=== PATIENT | female | born 1970 | race African-American/Black ===

== ENCOUNTER 2016-12-08 08:49 | Emergency (ER) | payer OTHER ==
[2016-12-08 08:57] VITALS: BP 147/100; PULSE 66; TEMP 97.4; BMI 46.9
--- NOTE | 2016-12-08 09:23 | PDOC ---
History of Present Illness - General Chief Complaint: Pain Stated Complaint: RT HEEL/FT PAIN Time Seen by Provider: 12/08/16 09:00 History Source: Patient Exam Limitations: No Limitations - History of Present Illness Initial Comments: 12/08/16 09:20 states was playing with her grandson, swung her leg back and kicked her heel into a hard aspect of the chair. Complaints of worsening pain to her right heel over the past 4 days. States used ice and some Tylenol with minimal result and understands nose has a heels and worries he might of been a fracture 12/08/16 09:34 Severity: reports: mild, moderate Pain Location: reports: lower extremity Past History - Travel Traveled outside of the country in the last 30 days: No Close contact w/someone who was outside of country & ill: No - Past Medical History Allergies/Adverse Reactions: Allergies Allergy/AdvReac Type Severity Reaction Status Date / Time No Known Drug Allergies Allergy Verified 12/08/16 08:54 Home Medications: Ambulatory Orders Oxycodone HCl/Acetaminophen [Percocet 5-325 mg Tablet -] 1 - 2 tab PO Q4H PRN # 7 tablet MDD 4 12/08/16 Anemia: No Asthma: Yes Cancer: No Cardiac Disorders: No CVA: No COPD: No CHF: No Dementia: No Diabetes: No GI Disorders: No Disorders: No HTN: Yes Hypercholesterolemia: No Liver Disease: No Seizures: No Thyroid Disease: No - Surgical History Abdominal Surgery: No Appendectomy: No Cardiac Surgery: No Cholecystectomy: No Lung Surgery: No Neurologic Surgery: No Orthopedic Surgery: No - Immunization History Immunization Up to Date: Yes - Psycho/Social/Smoking Cessation Hx Anxiety: No Suicidal Ideation: No Smoking Status: No Smoking History: Never smoked Have you smoked in the past 12 months: No Number of Cigarettes Smoked Daily: 0 Information on smoking cessation initiated: No Hx Alcohol Use: No Drug/Substance Use Hx: No Substance Use Type: None Trauma Specific PMHX - Complaint Specific PMHX Back Injury: No Neck Injury: No Review of Systems - Review of Systems Able to Perform ROS?: Yes (right heel) Is the patient limited Georgian proficient: Yes Constitutional: Yes: Symptoms Reported, See HPI HEENTM: No: Symptoms Reported Respiratory: No: Symptoms reported Musculoskeletal: Yes: Symptoms Reported, See HPI, Joint Pain, Joint Swelling Integumentary: Yes: Symptoms Reported All Other Systems: Reviewed and Negative *Physical Exam - Vital Signs Last Vital Signs Temp Pulse Resp BP Pulse Ox 97.4 F L 66 18 147/100 100 12/08/16 08:55 12/08/16 08:55 12/08/16 08:55 12/08/16 08:55 12/08/16 08:55 - Physical Exam General Appearance: Yes: Nourished, Appropriately Dressed, Apparent Distress, Mild Distress HEENT: positive: DANNY Neck: positive: Supple. negative: Tender Respiratory/Chest: positive: Lungs Clear, Normal Breath Sounds Extremity: positive: Normal Capillary Refill, Normal Range of Motion, Tender ( swelling, tenderness, and mild ecchymosis noted to the heel of her right foot. No crepitus or step-offs, but is tender to touch. Achilles tendon is intact, able to flex and extend foot.), Swelling Integumentary: positive: Normal Color, Dry, Warm, Swelling (full ROM to toes ), Bruising Neurologic: positive: bank guard II-XII NML intact, Fully Oriented, Alert, Normal Mood/ Affect, Normal Response ED Treatment Course - RADIOLOGY Radiology Studies Ordered: Category Date Time Status FOOT-RIGHT [RAD] Stat Radiology 12/08/16 09:08 Ordered Progress Note - Progress Note Progress Note: Heel contusion, treating with Bert wrap, cane, and given #7 Percocet tablets. Has appointment with orthopedist tomorrow *DC/Admit/Observation/Transfer Diagnosis at time of Disposition: Contusion of right heel Qualifiers: Encounter type: initial encounter Qualified Code(s): S90.31XA - Contusion of right foot, initial encounter - Discharge Dispostion Disposition: HOME Condition at time of disposition: Stable Admit: No - Referrals Referrals: Daphney Long MD [Primary Care Provider] - Dejuan Monk MD [Staff Physician] - - Patient Instructions Printed Discharge Instructions: DI for Contusion Additional Instructions: Rest, ice to area on and off for 15 minutes 4-6 times a day Avoid heavy lifting or exercise until pain and swelling is resolved or until further directed Keep area highly elevated to reduce swelling Use splints/Bert wrap as directed Followup with orthopedist in one to 2 days if not improving, if significantly improved may wait one week for followup with orthopedist May use ibuprofen 2-200 mg tablets every 6 hours as needed for pain - Post Discharge Activity Work/School Note: Back to Work
== END 2016-12-08 09:57 | disposition home or self-care (01) ==
LOC: JERFT 08:49
DX: S90.31XA Contusion of right foot, initial encounter (principal); W22.8XXA Striking against or struck by other objects, initial encounter; Y93.89 Activity, other specified; Y92.098 Other place in other non-institutional residence as the place of occurrence of the external cause; Y99.8 Other external cause status; I10 Essential (primary) hypertension; J45.909 Unspecified asthma, uncomplicated
CPT/HCPCS: 73630-TC-RT; 99281-25

== ENCOUNTER 2016-12-23 19:42 | Emergency (ER) | payer OTHER ==
[2016-12-23 19:55] VITALS: BP 155/83; PULSE 80; TEMP 97.9; BMI 45.8
--- NOTE | 2016-12-23 21:05 | PDOC ---
History of Present Illness - General History Source: Patient Exam Limitations: No Limitations - History of Present Illness Initial Comments: 12/23/16 21:11 The patient is a 46 year old female with significant past medical history of hypertension and acid reflux who presents to the ED with 2 days of nonradiating left sided chest pressure. Patient reports she was not doing anything at the time when she developed the left-sided chest pressure. She reports one episode of nausea with lightheadedness this morning. Patient denies diaphoresis, SOB, palpitations, jaw pain, shoulder pain, arm pain, and vomiting. She states never experiencing this in the past before. The patient denies fever, chills, cough, abdominal pain and diarrhea. Allergies: NKDA Social History: No alcohol, tobacco, or drug use reported. Past Surgical History: None reported PCP: Dr. Daphney Long <Ashly Washington - Last Filed: 12/24/16 01:41> - General History Source: Patient <Dinesh Alford - Last Filed: 12/24/16 01:59> - General Chief Complaint: Chest Pain Stated Complaint: CHEST PAIN Time Seen by Provider: 12/23/16 21:05 Past History <Ashly Washington - Last Filed: 12/24/16 01:41> - Past Medical History Anemia: No Asthma: Yes Cancer: No Cardiac Disorders: No CVA: No COPD: No CHF: No Dementia: No Diabetes: No GI Disorders: No Disorders: No HTN: Yes Hypercholesterolemia: No Liver Disease: No Seizures: No Thyroid Disease: No - Surgical History Abdominal Surgery: No Appendectomy: No Cardiac Surgery: No Cholecystectomy: No Lung Surgery: No Neurologic Surgery: No Orthopedic Surgery: No - Immunization History Immunization Up to Date: Yes - Psycho/Social/Smoking Cessation Hx Anxiety: No Suicidal Ideation: No Smoking Status: No Smoking History: Never smoked Have you smoked in the past 12 months: No Number of Cigarettes Smoked Daily: 0 Hx Alcohol Use: No Drug/Substance Use Hx: No Substance Use Type: None <Dinesh Alford - Last Filed: 12/24/16 01:59> - Past Medical History Allergies/Adverse Reactions: Allergies Allergy/AdvReac Type Severity Reaction Status Date / Time No Known Drug Allergies Allergy Verified 12/23/16 19:52 Home Medications: Ambulatory Orders Lisinopril 5 mg PO DAILY 12/23/16 Review of Systems - Review of Systems Able to Perform ROS?: Yes Comments:: 12/23/16 21:11 CONSTITUTIONAL: Absent: fever, no chills, no fatigue EYES: Absent: visual changes ENT: Absent: ear pain, no sore throat CARDIOVASCULAR: +left-sided chest pressure, lightheadedness Absent: no palpitations RESPIRATORY: Absent: cough, no SOB GI: +nausea Absent: abdominal pain, no vomiting, no constipation, no diarrhea GENITOURINARY: Absent: dysuria, no frequency, no hematuria MUSKULOSKELETAL: Absent: back pain, no arthralgia, no myalgia SKIN: Absent: rash NEURO: Absent: headache <Ashly Washington - Last Filed: 12/24/16 01:41> *Physical Exam - Vital Signs Last Vital Signs Temp Pulse Resp BP Pulse Ox 97.9 F 80 18 155/83 98 12/23/16 19:53 12/23/16 19:53 12/23/16 19:53 12/23/16 19:53 12/23/16 19:53 - Physical Exam Comments: 12/23/16 21:11 GENERAL: Morbidly obese. Well-appearing, well-nourished. No apparent distress. HEENT: Normocephalic, atraumatic. PERRL, EOM intact. CARDIOVASCULAR: Normal S1, S2. Regular rate and rhythm. PULMONARY: Clear to auscultation bilaterally. ABDOMEN: Soft, non-distended, non-tender. EXTREMITIES: Normal ROM in all four extremities. No gross deformities. SKIN: Warm, dry. No rash NEUROLOGICAL: No focal neurological deficits. <Ashly Washington - Last Filed: 12/24/16 01:41> - Vital Signs Last Vital Signs Temp Pulse Resp BP Pulse Ox 97.9 F 80 18 155/83 98 12/23/16 19:53 12/23/16 19:53 12/23/16 19:53 12/23/16 19:53 12/23/16 19:53 <Dinesh Alford - Last Filed: 12/24/16 01:59> Heart Score/ECG Review - ECG Impressions Comment:: 12/23/16 21:11 NSR @69bpm Nonspecific T wave abnormality Abnormal ECG 12/24/16 24:17 NSr @62bpm Nonspecific T wave abnormality Abnormal ECG <Ashly Washington - Last Filed: 12/24/16 01:41> ED Treatment Course - LABORATORY CBC & Chemistry Diagram: 12/23/16 21:30 12/23/16 21:30 <Ashly Washington - Last Filed: 12/24/16 01:41> - LABORATORY CBC & Chemistry Diagram: 12/23/16 21:30 12/23/16 21:30 <Dinesh Alford - Last Filed: 12/24/16 01:59> Medical Decision Making - Medical Decision Making 12/24/16 01:59 Dr. Alford: The scribe's documentation has been prepared under my direction and personally reviewed by me in its entirery. I confirm that the note above accurately reflects all work, treatment, procedures, and medical decision making performed by me. <Dinesh Alford - Last Filed: 12/24/16 01:59> *DC/Admit/Observation/Transfer - Attestations Scribe Attestion: 12/23/16 21:12 Documentation prepared by Ashly Washington, acting as back office medical assistant for Dinesh Alford MD <Ashly Washington - Last Filed: 12/24/16 01:41> - Discharge Dispostion Admit: No <Dinesh Alford - Last Filed: 12/24/16 01:59> Diagnosis at time of Disposition: Chest pain Qualifiers: Chest pain type: unspecified Qualified Code(s): R07.9 - Chest pain, unspecified - Discharge Dispostion Disposition: HOME Condition at time of disposition: Stable - Referrals Referrals: Daphney Long MD [Primary Care Provider] - Magan Hayes MD [Staff Physician] - - Patient Instructions Printed Discharge Instructions: DI for Chest Pain
[2016-12-23] MEDS ORDERED: ASPIRIN 81 MG CHEWABLE TABLETS PO ONE (21:08)
[2016-12-23] MEDS ORDERED: ASPIRIN 325 MG TABLET ONE (21:35)
[2016-12-23 21:40] LABS: MCH 29.7 pg (25.7-33.7); MCHC 33.7 g/dl (32.0-36.0); MEAN CELL VOLUME 88.1 fl (80-96); MEAN PLT VOLUME 9.8 fl (7.5-11.1); PLATELET COUNT 224 K/MM3 (134-434); RDW 15.4 % (11.6-15.6); WHITE BLOOD COUNT 5.1 K/mm3 (4.0-10.0)
[2016-12-23 21:58] LABS: INR 1.08 (0.82-1.09); PROTHROMBIN TIME (PATIENT) 11.9 SEC (9.98-11.88)
[2016-12-23 22:34] LABS: PLATELET ESTIMATE ADEQUATE (NORMAL)
[2016-12-23 22:45] LABS: ALBUMIN 3.4 g/dl (3.4-5.0); ANION GAP 7 (8-16); BILIRUBIN,TOTAL 0.2 mg/dL (0.2-1.0); CALCIUM 8.9 mg/dL (8.5-10.1); CO2 24 mmol/L (21-32); CREATININE 0.6 mg/dL (0.55-1.02); GLUCOSE,RANDOM 78 mg/dL (74-106); MAGNESIUM 2.1 mg/dL (1.8-2.4); SGOT/AST 10 U/L (15-37); SGPT/ALT 17 U/L (12-78); TOT PROT 6.8 g/dl (6.4-8.2)
[2016-12-23 22:47] LABS: ALK PHOS 93 U/L (45-117); TROPONIN I < 0.02 ng/ml (0.00-0.05)
[2016-12-24 01:57] LABS: TROPONIN I < 0.02 ng/ml (0.00-0.05)
--- NOTE | 2016-12-24 10:36 | EKG ---
Test Reason : Blood Pressure : / mmHG Vent. Rate : 069 BPM Atrial Rate : 069 BPM P-R Int : 158 ms QRS Dur : 076 ms QT Int : 360 ms P-R-T Axes : 043 003 -03 degrees QTc Int : 385 ms NORMAL SINUS RHYTHM NONSPECIFIC T WAVE ABNORMALITY ABNORMAL ECG WHEN COMPARED WITH ECG OF 14-OCT-2015 12:35, NONSPECIFIC T WAVE ABNORMALITY NOW EVIDENT IN LATERAL LEADS Confirmed by RENE WU, MARSHALL ([id number]) on 12/24/2016 10:35:59 AM Referred By: Confirmed By:MARSHALL LÓPEZ MD
--- NOTE | 2016-12-27 10:27 | EKG ---
Test Reason : Blood Pressure : / mmHG Vent. Rate : 062 BPM Atrial Rate : 062 BPM P-R Int : 170 ms QRS Dur : 082 ms QT Int : 414 ms P-R-T Axes : 003 040 -28 degrees QTc Int : 420 ms NORMAL SINUS RHYTHM NONSPECIFIC T WAVE ABNORMALITY POOR R WAVE PROGRESSION ABNORMAL ECG WHEN COMPARED WITH ECG OF 23-DEC-2016 20:07, NO SIGNIFICANT CHANGE WAS FOUND Confirmed by REILLY ELLISON MD ([id number]) on 12/27/2016 10:27:22 AM Referred By: Confirmed By:REILLY ELLISON MD
== END 2016-12-24 02:09 | disposition home or self-care (01) ==
LOC: JER 19:42
DX: R07.9 Chest pain, unspecified (principal); I10 Essential (primary) hypertension; K21.9 Gastro-esophageal reflux disease without esophagitis
CPT/HCPCS: 36415; 71010-TC; 80053; 82550; 83735; 84484; 84703; 85025; 85610; 93005; 93010; 99282-25

== ENCOUNTER 2017-01-27 13:21 | Emergency (ER) | payer OTHER ==
[2017-01-27 13:46] VITALS: BP 151/95; PULSE 66; TEMP 98.3; BMI 45.3
[2017-01-27] MEDS ORDERED: IBUPROFEN 600 MG TABLET (FP) PO ONE ×3 (14:16→15:07)
--- NOTE | 2017-01-27 15:19 | PDOC ---
History of Present Illness - General Chief Complaint: Pain, Acute Stated Complaint: RT FOOT PAIN Time Seen by Provider: 01/27/17 14:05 History Source: Patient Exam Limitations: No Limitations - History of Present Illness Initial Comments: 01/27/17 15:16 46 yr female states she slipped on ice today and landed on left knee and injured right heel. Pt has known heel spur. Pt is ambulatory no acute distress. Occurred: reports: just prior to arrival Severity: Yes: mild Past History - Past Medical History Allergies/Adverse Reactions: Allergies Allergy/AdvReac Type Severity Reaction Status Date / Time No Known Drug Allergies Allergy Verified 01/27/17 13:46 Home Medications: Ambulatory Orders Lisinopril 5 mg PO DAILY 12/23/16 Anemia: No Asthma: Yes Cancer: No Cardiac Disorders: No CVA: No COPD: No CHF: No Dementia: No Diabetes: No GI Disorders: No Disorders: No HTN: Yes Hypercholesterolemia: No Liver Disease: No Seizures: No Thyroid Disease: No Other medical history: BONE SPUR - Surgical History Abdominal Surgery: No Appendectomy: No Cardiac Surgery: No Cholecystectomy: No Lung Surgery: No Neurologic Surgery: No Orthopedic Surgery: No - Immunization History Immunization Up to Date: Yes - Psycho/Social/Smoking Cessation Hx Anxiety: No Suicidal Ideation: No Smoking Status: No Smoking History: Never smoked Have you smoked in the past 12 months: No Number of Cigarettes Smoked Daily: 0 Hx Alcohol Use: No Drug/Substance Use Hx: No Substance Use Type: None *Physical Exam - Vital Signs Last Vital Signs Temp Pulse Resp BP Pulse Ox 98.3 F 66 18 151/95 100 01/27/17 13:44 01/27/17 13:44 01/27/17 13:44 01/27/17 13:44 01/27/17 13:44 - Physical Exam General Appearance: Yes: Nourished, Appropriately Dressed HEENT: positive: EOMI, DANNY, Normal ENT Inspection, Normal Voice, TMs Normal, Pharynx Normal Neck: positive: Supple Respiratory/Chest: positive: Lungs Clear, Normal Breath Sounds Cardiovascular: positive: Regular Rhythm, Regular Rate Gastrointestinal/Abdominal: positive: Normal Bowel Sounds, Soft Musculoskeletal: positive: Normal Inspection Extremity: positive: Normal Capillary Refill, Normal Inspection, Normal Range of Motion, Other (left knee tender to palpation patella, right heel tender to touch no crepitus or deformity , no swelling, FROM all 4 extremities ) Integumentary: positive: Normal Color, Dry, Warm Neurologic: positive: Fully Oriented, Alert, Normal Mood/Affect, Normal Response , Motor Strength 03/19 ED Treatment Course - RADIOLOGY Radiology Studies Ordered: Category Date Time Status ANKLE & FOOT-RIGHT* [RAD] Stat Radiology 01/27/17 14:15 Completed KNEE 3 POS-LEFT [RAD] Stat Radiology 01/27/17 14:15 Taken - Medications Given in the ED: ED Medications Discontinued Medications Generic Name Dose Route Start Last Admin Trade Name Lauren PRN Reason Stop Dose Admin Ibuprofen 600 mg 01/27/17 14:16 01/27/17 15:10 Motrin - PO 01/27/17 14:17 600 mg ONCE ONE Administration Medical Decision Making - Medical Decision Making 01/27/17 15:17 cc: slip and fall injured left knee and right posterior heel no deformity no evidence of trauma will xray to r/o fracture motrin for pain 01/27/17 18:12 xrays are negative, pt is ambulatory with no distress. dc inst given all questions asked and answered before discharge. *DC/Admit/Observation/Transfer Diagnosis at time of Disposition: Heel spur Qualifiers: Laterality: right Qualified Code(s): M77.31 - Calcaneal spur, right foot Contusion, knee Qualifiers: Encounter type: initial encounter Laterality: left Qualified Code(s): S80.02XA - Contusion of left knee, initial encounter - Discharge Dispostion Disposition: HOME Condition at time of disposition: Improved - Referrals Referrals: Daphney Long MD [Primary Care Provider] - Farrukh Faith MD [Staff Physician] - - Patient Instructions Additional Instructions: follow with the orthopedist if symptoms worsen apply ice to the knee every 2hrs for 15 minutes while awake for the next 2 days take motrin (ibuprofen, advil) 600mg every 6hrs for pain as needed you may feel sore for the next few days after a fall , your xrays show nothing broken
== END 2017-01-27 15:26 | disposition home or self-care (01) ==
LOC: JERFT 13:21
DX: M77.31 Calcaneal spur, right foot (principal); S80.02XA Contusion of left knee, initial encounter; W00.0XXA Fall on same level due to ice and snow, initial encounter; Y93.89 Activity, other specified; Y92.410 Unspecified street and highway as the place of occurrence of the external cause; J45.909 Unspecified asthma, uncomplicated; I10 Essential (primary) hypertension
CPT/HCPCS: 73562-TC-LT; 73610-TC-RT; 73630-TC-RT; 99281-25

== ENCOUNTER 2017-03-12 10:56 | Emergency (ER) | payer OTHER ==
[2017-03-12 11:04] VITALS: BP 156/79; PULSE 69; TEMP 97.5; BMI 44.2
--- NOTE | 2017-03-12 11:39 | PDOC ---
History of Present Illness - General Chief Complaint: Pain Stated Complaint: ANKLE PAIN Time Seen by Provider: 03/12/17 11:26 History Source: Patient Exam Limitations: No Limitations - History of Present Illness Initial Comments: 03/12/17 11:30 46 yr female with c/o pain to right pinky toe for one week after hitting toe against the bed frame. Lower Extremity Pain Location: right: 5th toe Method of Injury: Yes: direct blow (on the bedframe) Extremity Pain Location - Extremity Pain Location Extremity Pain Locations: right: 5th toe Past History - Past Medical History Allergies/Adverse Reactions: Allergies Allergy/AdvReac Type Severity Reaction Status Date / Time No Known Drug Allergies Allergy Verified 03/12/17 10:58 Home Medications: Ambulatory Orders Lisinopril 5 mg PO DAILY 12/23/16 Anemia: No Asthma: Yes Cancer: No Cardiac Disorders: No CVA: No COPD: No CHF: No Dementia: No Diabetes: No GI Disorders: No Disorders: No HTN: Yes Hypercholesterolemia: No Liver Disease: No Seizures: No Thyroid Disease: No - Surgical History Abdominal Surgery: No Appendectomy: No Cardiac Surgery: No Cholecystectomy: No Lung Surgery: No Neurologic Surgery: No Orthopedic Surgery: No - Immunization History Immunization Up to Date: Yes - Psycho/Social/Smoking Cessation Hx Anxiety: No Suicidal Ideation: No Smoking Status: No Smoking History: Never smoked Have you smoked in the past 12 months: No Number of Cigarettes Smoked Daily: 0 Information on smoking cessation initiated: No Hx Alcohol Use: No Drug/Substance Use Hx: No Substance Use Type: None Review of Systems - Review of Systems Able to Perform ROS?: Yes Is the patient limited Armenian proficient: No Constitutional: No: Symptoms Reported HEENTM: No: Symptoms Reported Respiratory: No: Symptoms reported Cardiac (ROS): No: Symptoms Reported ABD/GI: No: Symptoms Reported : No: Symptoms Reported Musculoskeletal: Yes: Symptoms Reported *Physical Exam - Vital Signs Last Vital Signs Temp Pulse Resp BP Pulse Ox 97.5 F L 69 18 156/79 100 03/12/17 10:58 03/12/17 10:58 03/12/17 10:58 03/12/17 10:58 03/12/17 10:58 - Physical Exam General Appearance: Yes: Nourished, Appropriately Dressed HEENT: positive: EOMI, DANNY Neck: positive: Supple Respiratory/Chest: positive: Normal Breath Sounds Musculoskeletal: positive: Normal Inspection Extremity: positive: Normal Capillary Refill, Normal Inspection, Normal Range of Motion, Tender (right 5th toe ) Integumentary: positive: Normal Color, Dry, Warm Procedures - Splinting Pre-Proc Neuro Vasc Exam: normal Post-Proc Neuro Vasc Exam: normal Progress: 03/12/17 12:23 toes amna taped 4th and fifth right toe ED Treatment Course - RADIOLOGY Radiology Studies Ordered: Category Date Time Status TOE(S) RIGHT [RAD] Stat Radiology 03/12/17 11:28 Ordered Medical Decision Making - Medical Decision Making 03/12/17 11:42 cc: injury right 5th toe will get xray to r/o fracture *DC/Admit/Observation/Transfer Diagnosis at time of Disposition: Contusion, toe Qualifiers: Encounter type: initial encounter Toe: lesser toe Damage to nail status: without damage Laterality: right Qualified Code(s): S90.121A - Contusion of right lesser toe(s) without damage to nail, initial encounter - Discharge Dispostion Disposition: HOME Condition at time of disposition: Good - Referrals Referrals: Daphney Long MD [Primary Care Provider] - Sekou Landeros MD [Staff Physician] - - Patient Instructions Additional Instructions: keep the toe amna taped follow with the real estate attorney for follow up take advil as needed (motrin, ibuprofen) for pain as directed where protective shoes open, closed toe shoes
== END 2017-03-12 12:27 | disposition home or self-care (01) ==
LOC: JER 10:56 → JERFT 10:56
DX: S90.121A Contusion of right lesser toe(s) without damage to nail, initial encounter (principal); W22.03XA Walked into furniture, initial encounter; Y93.89 Activity, other specified; Y92.032 Bedroom in apartment as the place of occurrence of the external cause
CPT/HCPCS: 73660-TC; 99281-25

== ENCOUNTER 2017-10-02 16:45 | Emergency (ER) | payer OTHER ==
[2017-10-02 17:04] VITALS: BP 158/61; PULSE 63; TEMP 98.1; BMI 45.5
[2017-10-02] MEDS ORDERED: IBUPROFEN 600 MG TABLET (FP) PO ONE ×2 (18:05→18:09)
--- NOTE | 2017-10-02 18:07 | PDOC ---
History of Present Illness - General Chief Complaint: Injury Stated Complaint: KNEE PAIN Time Seen by Provider: 10/02/17 17:12 History Source: Patient Exam Limitations: No Limitations - History of Present Illness Initial Comments: 10/02/17 18:11 pt twisted her right knee last night fell down 3-4 steps heard a pop. Occurred: reports: yesterday Method of Injury: Yes: fell Past History - Past Medical History Allergies/Adverse Reactions: Allergies Allergy/AdvReac Type Severity Reaction Status Date / Time No Known Drug Allergies Allergy Verified 10/02/17 17:03 Home Medications: Ambulatory Orders Lisinopril 5 mg PO DAILY 12/23/16 Anemia: No Asthma: Yes Cancer: No Cardiac Disorders: No CVA: No COPD: No CHF: No DVT: No Dementia: No Diabetes: No GI Disorders: No Disorders: No HTN: Yes Hypercholesterolemia: No Liver Disease: No Seizures: No Thyroid Disease: No - Surgical History Abdominal Surgery: No Appendectomy: No Cardiac Surgery: No Cholecystectomy: No Lung Surgery: No Neurologic Surgery: No Orthopedic Surgery: No - Immunization History Immunization Up to Date: Yes - Suicide/Smoking/Psychosocial Hx Smoking Status: No Smoking History: Never smoked Have you smoked in the past 12 months: No Number of Cigarettes Smoked Daily: 0 Hx Alcohol Use: Yes (SOCIAL) Drug/Substance Use Hx: No Substance Use Type: None Review of Systems - Review of Systems Able to Perform ROS?: Yes Is the patient limited Niuean proficient: No Constitutional: No: Symptoms Reported HEENTM: No: Symptoms Reported Respiratory: No: Symptoms reported Cardiac (ROS): No: Symptoms Reported ABD/GI: No: Symptoms Reported : No: Symptoms Reported Musculoskeletal: Yes: Symptoms Reported *Physical Exam - Vital Signs Last Vital Signs Temp Pulse Resp BP Pulse Ox 98.1 F 63 20 158/61 98 10/02/17 17:01 10/02/17 17:01 10/02/17 17:01 10/02/17 17:01 10/02/17 17:01 - Physical Exam General Appearance: Yes: Nourished, Appropriately Dressed HEENT: positive: EOMI, DANNY Musculoskeletal: positive: Normal Inspection Extremity: positive: Normal Capillary Refill, Normal Range of Motion, Swelling ( right medial swelling , no bony tenderness or laxity ) Integumentary: positive: Normal Color, Dry, Warm Neurologic: positive: Fully Oriented, Alert, Normal Mood/Affect, Normal Response , Motor Strength 5/5 Procedures - Splinting Pre-Made Type: knee immobilizer (right leg) ED Treatment Course - ADDITIONAL ORDERS Additional order review: Laboratory Results 10/02/17 17:30 Urine HCG, Qual Negative - RADIOLOGY Radiology Studies Ordered: Category Date Time Status KNEE 3 POS-RIGHT [RAD] Stat Radiology 10/02/17 17:09 Taken Medical Decision Making - Medical Decision Making 10/02/17 18:04 cc: right knee pain after twisting the knee yesterday walking down the steps. 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 no history of injury in the past 10/02/17 18:12 knee immobilizer placed pt dc home with follow up with the orthopedist obdulio for pain 10/02/17 18:20 *DC/Admit/Observation/Transfer Diagnosis at time of Disposition: Right knee sprain Qualifiers: Encounter type: initial encounter Involved ligament of knee: medial collateral ligament Qualified Code(s): S83.411A - Sprain of medial collateral ligament of right knee, initial encounter - Discharge Dispostion Disposition: HOME Condition at time of disposition: Good - Referrals Referrals: Daphney Long MD [Primary Care Provider] - Dejuan Monk MD [Staff Physician] - - Patient Instructions Additional Instructions: elevate and apply ice every 2hrs for 20 minutes while awake for the next 2 days take motrin as needed for pain use the immobilizer while awake remove to sleep and bathe follow with the orthopedist for follow up next week - Post Discharge Activity Forms/Work/School Notes: Back to Work
== END 2017-10-02 18:15 | disposition home or self-care (01) ==
LOC: JERFT 16:45
PROC: 2W3QXYZ Immobilization of Right Lower Leg using Other Device (ICD-10-PCS; principal; 2017-10-02)
DX: S83.411A Sprain of medial collateral ligament of right knee, initial encounter (principal); W10.8XXA Fall (on) (from) other stairs and steps, initial encounter; Y93.89 Activity, other specified; Y92.89 Other specified places as the place of occurrence of the external cause; Y99.8 Other external cause status; I10 Essential (primary) hypertension
CPT/HCPCS: 73562-TC-RT; 84703; 99281-25

== ENCOUNTER 2017-11-15 18:23 | Emergency (ER) | payer OTHER ==
[2017-11-15 18:56] VITALS: BP 138/87; PULSE 77; TEMP 98.6; BMI 45.5
--- NOTE | 2017-11-15 18:56 | PDOC ---
Rapid Medical Evaluation Time Seen by Provider: 11/15/17 18:52 Medical Evaluation: Allergies Allergy/AdvReac Type Severity Reaction Status Date / Time No Known Drug Allergies Allergy Verified 10/02/17 17:03 11/15/17 18:52 The patient presents with a chief complaint of: Back pain for three days. Denies fall/trauma. No saddle anesthesia, bladder/bowel incontinence Tried Tylenol with little relief. Last dose at 3pm. I have performed a brief in-person evaluation of this patient; Pertinent physical exam findings: TTP of the L lower paraspinous muscles I have ordered the following: nothing The patient will proceed to the ED for further evaluation.
[2017-11-15 19:25] LABS: HCG,QUALITATIVE URINE NEGATIVE; URINE APPEARANCE CLEAR; URINE BILIRUBIN NEGATIVE (NEGATIVE); URINE BLOOD NEGATIVE (NEGATIVE); URINE COLOR LTYELLOW; URINE GLUCOSE (UA) NEGATIVE (NEGATIVE); URINE KETONE NEGATIVE (NEGATIVE); URINE LEUK ESTERASE NEGATIVE (NEGATIVE); URINE NITRITE NEGATIVE (NEGATIVE); URINE PROTEIN NEGATIVE (NEGATIVE); URINE UROBILINOGEN NEGATIVE mg/dL (0.2-1.0)
[2017-11-15] MEDS ORDERED: KETOROLAC TROMETHAMINE 60 MG/2 ML VIAL IM ONE (19:29)
--- NOTE | 2017-11-15 19:32 | PDOC ---
History of Present Illness - General Chief Complaint: Back Pain Stated Complaint: BACK PAIN Time Seen by Provider: 11/15/17 18:52 History Source: Patient Exam Limitations: No Limitations - History of Present Illness Initial Comments: 11/15/17 19:26 47 yr female history of HTN presents with 3 days left lower back pain to buttock worse with standing up and walking. pt states pain started after sleeping with her dog in the bed 3 days ago. 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 no abd pain no fever no urinary or bowel complaints. Pt has no history of back pain in the past. Past History - Past Medical History Allergies/Adverse Reactions: Allergies Allergy/AdvReac Type Severity Reaction Status Date / Time No Known Drug Allergies Allergy Verified 11/15/17 18:53 Home Medications: Ambulatory Orders Hydrochlorothiazide [Hctz -] 25 mg PO DAILY 11/15/17 Losartan Potassium 50 mg PO ASDIR 11/15/17 Anemia: No Asthma: Yes Cancer: No Cardiac Disorders: No CVA: No COPD: No CHF: No DVT: No Dementia: No Diabetes: No GI Disorders: No Disorders: No HTN: Yes Hypercholesterolemia: No Liver Disease: No Seizures: No Thyroid Disease: No - Surgical History Abdominal Surgery: No Appendectomy: No Cardiac Surgery: No Cholecystectomy: No Lung Surgery: No Neurologic Surgery: No Orthopedic Surgery: No - Immunization History Immunization Up to Date: Yes - Suicide/Smoking/Psychosocial Hx Smoking Status: No Smoking History: Never smoked Have you smoked in the past 12 months: No Number of Cigarettes Smoked Daily: 0 Hx Alcohol Use: Yes (SOCIAL) Drug/Substance Use Hx: No Substance Use Type: None Trauma Specific PMHX - Complaint Specific PMHX Back Injury: No Neck Injury: No *Physical Exam - Vital Signs Last Vital Signs Temp Pulse Resp BP Pulse Ox 98.6 F 77 19 138/87 99 11/15/17 18:54 11/15/17 18:54 11/15/17 18:54 11/15/17 18:54 11/15/17 18:54 - Physical Exam General Appearance: Yes: Nourished, Appropriately Dressed, Obese HEENT: positive: EOMI, DANNY Neck: negative: Tender Respiratory/Chest: positive: Lungs Clear, Normal Breath Sounds Cardiovascular: positive: Regular Rhythm, Regular Rate Gastrointestinal/Abdominal: positive: Normal Bowel Sounds, Soft Musculoskeletal: positive: Normal Inspection, Other (tender to touch left buttock and soft tissue paraspinal lower back ). 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, Fully Oriented, Alert, Normal Mood/ Affect, Normal Response, Motor Strength / ED Treatment Course - ADDITIONAL ORDERS Additional order review: Laboratory Results 11/15/17 19:15 Urine Color Ltyellow Urine Appearance Clear Urine pH 5.0 D Ur Specific [place] 1.025 Urine Protein Negative Urine Glucose (UA) Negative Urine Ketones Negative Urine Blood Negative Urine Nitrite Negative Urine Bilirubin Negative Urine Urobilinogen Negative Urine HCG, Qual Negative Medical Decision Making - Medical Decision Making 11/15/17 19:29 cc: low back pain 3 days to buttock neg saddle anesthesia neg numbness or tingling neg urine or bowel dysfunction will r/o kidney stone, r/o UTI toradol for pain *DC/Admit/Observation/Transfer Diagnosis at time of Disposition: Sciatica of left side - Discharge Dispostion Disposition: HOME Condition at time of disposition: Good - Referrals Referrals: Daphney Long MD [Primary Care Provider] - - Patient Instructions Additional Instructions: take naprosyn for pain as needed take the flexeril for muscle spasm as needed (may make you drowsy do not drive operate machinery ) apply Icy Hot or any over the counter topical rubbing cream to the area of pain follow with your doctor in 1-2 days for follow up - Post Discharge Activity Forms/Work/School Notes: Back to Work
[2017-11-15] MEDS ORDERED: KETOROLAC TROMETHAMINE 60 MG/2 ML VIAL ONE (19:39)
== END 2017-11-15 20:20 | disposition home or self-care (01) ==
LOC: JERFT 18:23
PROC: 3E0233Z Introduction of Anti-inflammatory into Muscle, Percutaneous Approach (ICD-10-PCS; principal; 2017-11-15)
DX: M54.42 Lumbago with sciatica, left side (principal)
CPT/HCPCS: 81003; 84703; 87086; 99281-25

== ENCOUNTER 2018-03-17 17:30 | Emergency (ER) | payer OTHER ==
[2018-03-17 17:39] VITALS: BP 130/76; PULSE 88; TEMP 98.1; BMI 46.9
--- NOTE | 2018-03-17 17:39 | PDOC ---
Rapid Medical Evaluation Chief Complaint: Pain Time Seen by Provider: 03/17/18 17:37 Medical Evaluation: Allergies Allergy/AdvReac Type Severity Reaction Status Date / Time No Known Drug Allergies Allergy Verified 03/17/18 17:35 03/17/18 17:38 Pt c/o: rt calf pain radiating to anterior aspect Pt on brief exam: warm, 2+ pedal pulse Pt ordered for: duplex Pt to proceed to the ED Discharge Disposition - Diagnosis Pain of right calf - Referrals - Patient Instructions - Post Discharge Activity
--- NOTE | 2018-03-17 18:10 | PDOC ---
History of Present Illness - General Chief Complaint: Pain Stated Complaint: RT LEG PAIN Time Seen by Provider: 03/17/18 17:37 History Source: Patient Exam Limitations: No Limitations - History of Present Illness Initial Comments: 03/17/18 patient came for evaluation of right lower extremity pain. States had calf pain for approximately 2-3 weeks for unknown cause and states had pain wraparound to front and she tibial/perdomo area the past couple days. Admits to increasing her exercise routine including walking and wonders if may have some relationship. Patient denies swelling to calf, denies any erythema, any history of blood clots. Has had no recent travel or prolonged periods of sitting. No fevers, shortness of breath chest pain or palpitations. No Trauma to legs. 03/17/18 22:48 Occurred: reports: last week Severity: reports: mild, moderate Pain Location: reports: lower extremity (right legs ) Modifying Factors: improves with: None Loss of Consciousness: no loss of consciousness Associated Symptoms (Fall): denies symptoms Past History - Travel Traveled outside of the country in the last 30 days: No Close contact w/someone who was outside of country & ill: No - Past Medical History Allergies/Adverse Reactions: Allergies Allergy/AdvReac Type Severity Reaction Status Date / Time No Known Drug Allergies Allergy Verified 03/17/18 17:35 Home Medications: Ambulatory Orders Hydrochlorothiazide [Hctz -] 25 mg PO DAILY 11/15/17 Losartan Potassium 50 mg PO ASDIR 11/15/17 Anemia: No Asthma: Yes Cancer: No Cardiac Disorders: No CVA: No COPD: No CHF: No DVT: No Dementia: No Diabetes: No GI Disorders: No Disorders: No HTN: Yes Hypercholesterolemia: No Liver Disease: No Seizures: No Thyroid Disease: No - Surgical History Abdominal Surgery: No Appendectomy: No Cardiac Surgery: No Cholecystectomy: No Lung Surgery: No Neurologic Surgery: No Orthopedic Surgery: No - Immunization History Immunization Up to Date: Yes - Suicide/Smoking/Psychosocial Hx Smoking Status: No Smoking History: Never smoked Have you smoked in the past 12 months: No Number of Cigarettes Smoked Daily: 0 Information on smoking cessation initiated: No Hx Alcohol Use: Yes (SOCIAL) Drug/Substance Use Hx: No Substance Use Type: None Trauma Specific PMHX - Complaint Specific PMHX Back Injury: No Neck Injury: No Review of Systems - Review of Systems Able to Perform ROS?: Yes Is the patient limited Sinhala proficient: No Constitutional: Yes: Symptoms Reported, See HPI, Malaise HEENTM: No: Symptoms Reported Respiratory: No: Symptoms reported Musculoskeletal: Yes: Symptoms Reported, See HPI, Muscle Pain (right calf and perdomo) Integumentary: Yes: Symptoms Reported, See HPI Neurological: No: Symptoms reported All Other Systems: Reviewed and Negative *Physical Exam - Vital Signs Last Vital Signs Temp Pulse Resp BP Pulse Ox 98.1 F 88 18 130/76 96 03/17/18 17:36 03/17/18 17:36 03/17/18 17:36 03/17/18 17:36 03/17/18 17:36 - Physical Exam General Appearance: Yes: Nourished, Appropriately Dressed, Apparent Distress, Mild Distress HEENT: positive: DANNY, Normal ENT Inspection, Normal Voice, TMs Normal Neck: positive: Supple. negative: Tender Respiratory/Chest: positive: Lungs Clear Gastrointestinal/Abdominal: positive: Soft. negative: Tender Musculoskeletal: positive: Normal Inspection. negative: CVA Tenderness, Decreased Range of Motion, Muscle Spasm, Vertebral Tenderness Extremity: positive: Normal Capillary Refill, Normal Inspection, Normal Range of Motion, Calf Tenderness (mild with no cording/ erythema/ NEGATIVE Hom[place] ). 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 Motrin helped resolve some pain. We'll discharge with Strain, encouraged follow-up with orthopedist as needed *DC/Admit/Observation/Transfer Diagnosis at time of Disposition: Pain of right calf Perdomo splints Qualifiers: Encounter type: initial encounter Laterality: right Qualified Code(s): S86.891A - Other injury of other muscle(s) and tendon(s) at lower leg level, right leg, initial encounter - Discharge Dispostion Disposition: HOME Condition at time of disposition: Stable Admit: No - Referrals Referrals: Daphney Long MD [Primary Care Provider] - Dejuan Monk MD [Staff Physician] - - Patient Instructions Printed Discharge Instructions: DI for Calf Muscle Strain Additional Instructions: Rest, ice to area on and off for 15 minutes 4-6 times a day Avoid heavy lifting or exercise until pain and swelling is resolved or until further directed Keep area highly elevated to reduce swelling Use splints/Bert wrap as directed Followup with orthopedist in one to 2 days if not improving, if significantly improved may wait one week for followup with orthopedist May use ibuprofen 2-200 mg tablets every 6 hours as needed for pain - Post Discharge Activity Forms/Work/School Notes: Back to Work
[2018-03-17] MEDS ORDERED: IBUPROFEN 600 MG TABLET (FP) PO ONE ×2 (18:12→18:18)
== END 2018-03-17 20:02 | disposition home or self-care (01) ==
LOC: JERFT 17:30
DX: M79.661 Pain in right lower leg (principal); S86.891A Other injury of other muscle(s) and tendon(s) at lower leg level, right leg, initial encounter; X58.XXXA Exposure to other specified factors, initial encounter; Y93.89 Activity, other specified; Y92.9 Unspecified place or not applicable; J45.909 Unspecified asthma, uncomplicated; I10 Essential (primary) hypertension
CPT/HCPCS: 93971-TC; 99281-25

== ENCOUNTER 2018-04-22 17:46 | Emergency (ER) | payer OTHER ==
--- NOTE | 2018-04-22 17:51 | PDOC ---
Rapid Medical Evaluation Chief Complaint: Chest Pain Time Seen by Provider: 04/22/18 17:48 Medical Evaluation: Allergies Allergy/AdvReac Type Severity Reaction Status Date / Time No Known Drug Allergies Allergy Verified 04/22/18 17:48 04/22/18 17:49 I have performed a brief in-person evaluation of this patient. The patient presents with a chief complaint of: intermittent palpitations x 2 days. H/o HTN Pertinent physical exam findings:stable w/ clear chest/lungs I have ordered the following:ekg/labs The patient will proceed to the ED for further evaluation. Discharge Disposition - Diagnosis Palpitations - Referrals - Patient Instructions - Post Discharge Activity
[2018-04-22 17:53] VITALS: TEMP 97.8; BMI 47.2
--- NOTE | 2018-04-22 18:22 | PDOC ---
History of Present Illness - General Chief Complaint: Palpitations Stated Complaint: palpitations Time Seen by Provider: 04/22/18 17:48 - History of Present Illness Initial Comments: 04/22/18 18:22 The patient is a 47 year old female with a history of HTN, asthma, who presents for evaluation of palpitations. The patient reports a 2 day history of worsening intermittent palpitations prompting her presentation to the ED for further evaluation. She otherwise denies fevers, chills, SOB, chest pain, vomiting, abdominal pain, or changes with urination or bowel movements. The patient denies similar symptoms in the past. Past History - Past Medical History Allergies/Adverse Reactions: Allergies Allergy/AdvReac Type Severity Reaction Status Date / Time No Known Drug Allergies Allergy Verified 04/22/18 17:48 Home Medications: Ambulatory Orders Hydrochlorothiazide [Hctz -] 25 mg PO DAILY 11/15/17 Losartan Potassium 50 mg PO ASDIR 11/15/17 Anemia: No Asthma: Yes Cancer: No Cardiac Disorders: No CVA: No COPD: No CHF: No DVT: No Dementia: No Diabetes: No GI Disorders: No Disorders: No HTN: Yes Hypercholesterolemia: No Liver Disease: No Seizures: No Thyroid Disease: No - Surgical History Abdominal Surgery: No Appendectomy: No Cardiac Surgery: No Cholecystectomy: No Lung Surgery: No Neurologic Surgery: No Orthopedic Surgery: No - Immunization History Immunization Up to Date: Yes - Suicide/Smoking/Psychosocial Hx Smoking Status: No Smoking History: Never smoked Have you smoked in the past 12 months: No Number of Cigarettes Smoked Daily: 0 Hx Alcohol Use: Yes (SOCIAL) Drug/Substance Use Hx: No Substance Use Type: None Review of Systems - Review of Systems Comments:: 04/22/18 18:26 Constitutional: No fevers, chills, fatigue, malaise HEENT: No Rhinorrhea, nasal congestion, visual changes Cardiovascular: Palpitations. No chest pain, syncope, lightheadedness Respiratory: No Cough, SOB, Hemoptysis, Gastrointestinal: No Abdominal pain, Nausea, Vomiting, Constipation, Diarrhea, Melena Genitourinary: No Dysuria, Frequency, Urgency, Hesitancy, Hematuria, Flank pain Musculoskeletal: No Myalgia, arthralgia Skin: No rashes, itching, bruising, pallor Neurologic: No Headache, Dizziness, Numbness, Weakness, or Tingling Psychiatric: No Hallucinations. No SI or HI *Physical Exam - Vital Signs Last Vital Signs Temp Pulse Resp BP Pulse Ox 97.8 F 84 18 126/86 98 04/22/18 17:49 04/22/18 17:49 04/22/18 17:49 04/22/18 17:49 04/22/18 17:49 - Physical Exam Comments: 04/22/18 18:27 General Appearance: Nourished. No Apparent Distress HEENT: EOMI, DANNY. No Pharyngeal Erythema, Tonsillar Exudate, Tonsillar Erythema Neck: No Cervical Lymphadenopathy Respiratory/Chest: Lungs Clear, Normal Breath Sounds. No Crackles, Rales, Rhonchi, Wheezing Cardiovascular: Regular Rhythm, Regular Rate. No Murmur, Gallops, Rubs Gastrointestinal/Abdominal: Normal Bowel Sounds, Soft. No Guarding, Rebound, Tenderness Musculoskeletal: No CVA Tenderness Extremity: Normal Capillary Refill Integumentary: Normal Color, Dry, Warm Neurologic: Fully Oriented, Alert, Normal Mood/Affect, Normal Response, Heart Score/ECG Review #1 ECG reviewed & interpreted by me at: 18:51 General ECG Interpretation: Sinus Rhythm, Normal Rate, Normal Intervals, No acute ischemic changes ED Treatment Course - LABORATORY CBC & Chemistry Diagram: 04/22/18 18:11 04/22/18 18:11 Medical Decision Making - Medical Decision Making 04/22/18 18:27 The patient is a 47 year old female with a history of HTN, asthma, who presents for evaluation of palpitations. Differential includes but is not limited to: Thyroid Dysfunction, Arrhythmia, ACS, Infectious, Metabolic Derangement. Given the patient's history and physical exam, we will obtain a cbc cmp, troponin, tsh , ekg to evaluate further. We will continue to monitor and reassess in the meantime. 04/22/18 18:51 Patient signed out to Dr. Israel pending lab results and dispo. *DC/Admit/Observation/Transfer Diagnosis at time of Disposition: Palpitations - Referrals - Patient Instructions - Post Discharge Activity
[2018-04-22 18:34] LABS: BASO % 1.2 % (0-2.0); EOS % 0.8 % (0-4.5); HEMATOCRIT 40.6 % (32.4-45.2); HEMOGLOBIN 13.7 GM/dL (10.7-15.3); LYMPH % 43.6 % (8-40); MCH 30.1 pg (25.7-33.7); MCHC 33.7 g/dl (32.0-36.0); MEAN CELL VOLUME 89.4 fl (80-96); MEAN PLT VOLUME 10.4 fl (7.5-11.1); MONO % 6.6 % (3.8-10.2); NEUT % 47.8 % (42.8-82.8); PLATELET COUNT 308 K/MM3 (134-434); RBC 4.54 M/mm3 (3.60-5.2); RDW 13.6 % (11.6-15.6); WHITE BLOOD COUNT 10.7 K/mm3 (4.0-10.0)
[2018-04-22 18:44] LABS: ALBUMIN 3.7 g/dl (3.4-5.0); ANION GAP 10 (8-16); BILIRUBIN,TOTAL 0.3 mg/dL (0.2-1.0); BLOOD UREA NITROGEN 17 mg/dL (7-18); CALCIUM 9.8 mg/dL (8.5-10.1); CHLORIDE 101 mmol/L (98-107); CO2 27 mmol/L (21-32); CREATININE 0.8 mg/dL (0.55-1.02); GLUCOSE,RANDOM 96 mg/dL (74-106); POTASSIUM 3.1 mmol/L (3.5-5.1); SGOT/AST 13 U/L (15-37); SGPT/ALT 26 U/L (12-78); SODIUM 138 mmol/L (136-145); TOT PROT 7.7 g/dl (6.4-8.2)
--- NOTE | 2018-04-22 18:45 | PDOC ---
*Physical Exam - Vital Signs Last Vital Signs Temp Pulse Resp BP Pulse Ox 97.8 F 80 18 129/81 100 04/22/18 17:49 04/22/18 19:15 04/22/18 19:15 04/22/18 19:15 04/22/18 19:15 <Chavez Katz - Last Filed: 04/22/18 19:21> - Vital Signs Last Vital Signs Temp Pulse Resp BP Pulse Ox 97.8 F 84 18 126/86 98 04/22/18 17:49 04/22/18 17:49 04/22/18 17:49 04/22/18 17:49 04/22/18 17:49 <Jorge Higgins - Last Filed: 04/22/18 19:27> ED Treatment Course - LABORATORY CBC & Chemistry Diagram: 04/22/18 18:11 04/22/18 18:11 - ADDITIONAL ORDERS Additional order review: Laboratory Results 04/22/18 04/22/18 04/22/18 18:11 18:11 18:11 Sodium 138 Potassium 3.1 L Chloride 101 Carbon Dioxide 27 Anion Gap 10 BUN 17 Creatinine 0.8 Creat Clearance w eGFR > 60 Random Glucose 96 Calcium 9.8 Total Bilirubin 0.3 D AST 13 L ALT 26 Alkaline Phosphatase 89 Creatine Kinase 123 Troponin I < 0.02 Total Protein 7.7 Albumin 3.7 TSH 2.10 Serum , Qual Negative 04/22/18 18:11 RBC 4.54 MCV 89.4 MCHC 33.7 RDW 13.6 D MPV 10.4 Neutrophils % 47.8 D Lymphocytes % 43.6 H D Monocytes % 6.6 Eosinophils % 0.8 Basophils % 1.2 D - Medications Given in the ED: ED Medications Discontinued Medications Generic Name Dose Route Start Last Admin Trade Name Freq PRN Reason Stop Dose Admin Potassium Chloride 40 meq 04/22/18 18:59 04/22/18 19:15 K-Dur - PO 04/22/18 19:00 40 meq ONCE ONE Administration <Chavez Katz - Last Filed: 04/22/18 19:21> - LABORATORY CBC & Chemistry Diagram: 04/22/18 18:11 04/22/18 18:11 - ADDITIONAL ORDERS Additional order review: Laboratory Results 04/22/18 18:11 Serum , Qual Negative 04/22/18 18:11 RBC 4.54 MCV 89.4 MCHC 33.7 RDW 13.6 D MPV 10.4 Neutrophils % 47.8 D Lymphocytes % 43.6 H D Monocytes % 6.6 Eosinophils % 0.8 Basophils % 1.2 D <Jorge Higgins - Last Filed: 04/22/18 19:27> Medical Decision Making - Medical Decision Making 04/22/18 18:45 Care taken over from Dr. Yu for further evaluation. 04/22/18 19:26 Labs grossly unconcerning as below. EKG unconcerning. Discharging to home with instructions to f/u with pcp for further evaluation. Laboratory Results - last 24 hr 04/22/18 04/22/18 04/22/18 18:11 18:11 18:11 WBC 10.7 H D RBC 4.54 Hgb 13.7 Hct 40.6 MCV 89.4 MCH 30.1 MCHC 33.7 RDW 13.6 D Plt Count 308 D MPV 10.4 Absolute Neuts (auto) 5.1 Neutrophils % 47.8 D Lymphocytes % 43.6 H D Monocytes % 6.6 Eosinophils % 0.8 Basophils % 1.2 D Nucleated RBC % 0 Sodium 138 Potassium 3.1 L Chloride 101 Carbon Dioxide 27 Anion Gap 10 BUN 17 Creatinine 0.8 Creat Clearance w eGFR > 60 Random Glucose 96 Calcium 9.8 Total Bilirubin 0.3 D AST 13 L ALT 26 Alkaline Phosphatase 89 Creatine Kinase 123 Troponin I < 0.02 Total Protein 7.7 Albumin 3.7 TSH 2.10 Serum , Qual Urine Color Urine Appearance Urine pH Ur Specific [place] Urine Protein Urine Glucose (UA) Urine Ketones Urine Blood Urine Nitrite Urine Bilirubin Urine Urobilinogen Ur Leukocyte Esterase 04/22/18 04/22/18 18:11 Unknown WBC RBC Hgb Hct MCV MCH MCHC RDW Plt Count MPV Absolute Neuts (auto) Neutrophils % Lymphocytes % Monocytes % Eosinophils % Basophils % Nucleated RBC % Sodium Potassium Chloride Carbon Dioxide Anion Gap BUN Creatinine Creat Clearance w eGFR Random Glucose Calcium Total Bilirubin AST ALT Alkaline Phosphatase Creatine Kinase Troponin I Total Protein Albumin TSH Serum , Qual Negative Urine Color Yellow Urine Appearance Slcloudy Urine pH 5.0 Ur Specific [place] 1.027 Urine Protein Negative Urine Glucose (UA) Negative Urine Ketones Negative Urine Blood Negative Urine Nitrite Negative Urine Bilirubin Negative Urine Urobilinogen Negative Ur Leukocyte Esterase Negative <Irwin Higginsorn - Last Filed: 04/22/18 19:27> *DC/Admit/Observation/Transfer <Chavez Katz - Last Filed: 04/22/18 19:21> <[email or web address] - Last Filed: 04/22/18 19:27> Diagnosis at time of Disposition: Palpitations - Discharge Dispostion Disposition: HOME - Referrals Referrals: Daphney Long MD [Primary Care Provider] - Marco Antonio Greenwood MD [Staff Physician] - - Patient Instructions Printed Discharge Instructions: DI for Palpitations Additional Instructions: Even though your labs and EKG were normal today, we cannot rule out all arrhythmias. 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 You may need a Holter Monitor. If you experience worsening palpitations, chest pain, shortness of breath, or any other concerning symptoms, return to the ER immediately.
[2018-04-22 18:50] LABS: ALK PHOS 89 U/L (45-117)
[2018-04-22] MEDS ORDERED: POTASSIUM CHLORIDE TABS 20 MEQ TABLET.ER (FP) PO ONE ×2 (18:59→19:07)
--- NOTE | 2018-04-22 19:13 | PDOC ---
Attending Attestation - Resident Resident Name: Dakota Yu - ED Attending Attestation I have performed the following: I have examined & evaluated the patient, The case was reviewed & discussed with the resident, I agree w/resident's findings & plan, Exceptions are as noted - HPI HPI: 04/22/18 19:09 "The patient is a 47 year old female with past medical history of HTN, acid reflux and asthma presents to the emergency department with palpitations. The patient reports intermittent palpitations for the past 2 days. Does not know of any exacerbating or alleviating factors. States that she will randomly get a flutter in her chest that resolves after a few seconds. Pt denies chest pain or sob. Denies fever, chills, cough or headache. Denies vertigo and dizziness. Denies any lower/upper extremity pain or swelling. Denies dysuria, hematuria, frequency or urgency to urinate. Pt endorses 1 cup of coffee per day, no other caffeine intake. Denies other illicit drug use. Allergies: NKDA Social history: Social use of alcohol. Denies history of smoking or recreational drug use. Surgical history: None reported PCP: Dr. Daphney Long " - Physicial Exam PE: 04/22/18 19:12 "GENERAL: Awake, alert, and fully oriented, in no acute distress. HEAD: No signs of trauma EYES: PERRLA, EOMI, sclera anicteric, conjunctiva clear ENT: Auricles normal inspection, hearing grossly normal, nares patent, oropharynx clear without exudates. Moist mucosa NECK: Nontender, no stepoffs, Normal ROM, supple, no lymphadenopathy, JVD, or masses LUNGS: Breath sounds equal, clear to auscultation bilaterally. No wheezes, and no crackles HEART: Regular rate and rhythm, normal S1 and S2, no murmurs, rubs or gallops ABDOMEN: Soft, nontender, normoactive bowel sounds. No guarding, no rebound. No masses EXTREMITIES: Normal range of motion, no edema. No clubbing or cyanosis. No cords, erythema, or tenderness NEUROLOGICAL: Cranial nerves II through XII intact. 5/5 strength and sensation in all extremities, Normal speech, normal gait, normal cerebellar function SKIN: Warm, Dry, normal turgor, no rashes or lesions noted. " - Medical Decision Making 04/22/18 19:12 47 F with intermittent palpitations. EKG wnl. Unclear etiology. Possible paroxysmal SVT, though duration of each episode is only a few seconds. - Labs, cardiac enzymes, TSH 04/22/18 19:13 Labs wnl, TSH normal Recommend outpt work up with Holter monitor Pt is well appearing, with normal vitals. Clinically stable for DC at this time. I discussed the physical exam findings, ancillary test results and final diagnoses with the patient. I answered all of the patient's questions. The patient was satisfied with the care received and felt comfortable with the discharge plan and treatment plan. The patient agrees to follow up with the primary care physician within 24-72 hours.
[2018-04-22 19:16] VITALS: BP 129/81; PULSE 80
[2018-04-22 19:23] LABS: URINE APPEARANCE SLCLOUDY; URINE BILIRUBIN NEGATIVE (<2.0 mg/dL); URINE BLOOD NEGATIVE (NEGATIVE); URINE COLOR YELLOW; URINE GLUCOSE (UA) NEGATIVE (NEGATIVE); URINE KETONE NEGATIVE (NEGATIVE); URINE LEUK ESTERASE NEGATIVE (NEGATIVE); URINE NITRITE NEGATIVE (NEGATIVE); URINE PROTEIN NEGATIVE (NEGATIVE); URINE UROBILINOGEN NEGATIVE mg/dL (0.2-1.0)
--- NOTE | 2018-04-23 14:38 | EKG ---
Test Reason : Blood Pressure : / mmHG Vent. Rate : 085 BPM Atrial Rate : 085 BPM P-R Int : 164 ms QRS Dur : 078 ms QT Int : 382 ms P-R-T Axes : 046 006 -04 degrees QTc Int : 454 ms NORMAL SINUS RHYTHM POSSIBLE ANTERIOR INFARCT , AGE UNDETERMINED ABNORMAL ECG WHEN COMPARED WITH ECG OF 24-DEC-2016 00:43, NO SIGNIFICANT CHANGE WAS FOUND Confirmed by MD Dawit, Dakota ([id number]) on 04/23/2018 2:37:57 PM Referred By: Confirmed By:Dakota Pastor MD
== END 2018-04-22 19:36 | disposition home or self-care (01) ==
LOC: JER 17:46
DX: R00.2 Palpitations (principal); I10 Essential (primary) hypertension; J45.909 Unspecified asthma, uncomplicated
CPT/HCPCS: 36415; 80053; 81003; 82550; 84443; 84484; 84703; 85025; 87086; 93005; 93010; 99283-25

== ENCOUNTER 2018-09-27 17:00 | Emergency (ER) | payer OTHER ==
--- NOTE | 2018-09-27 17:47 | PDOC ---
Rapid Medical Evaluation Time Seen by Provider: 09/27/18 17:45 Medical Evaluation: Allergies Allergy/AdvReac Type Severity Reaction Status Date / Time No Known Drug Allergies Allergy Verified 04/22/18 17:48 I have performed a brief in-person evaluation of this patient. The patient presents with a chief complaint of: pain and tingling in right lower extremity; feels like "spiders walking up an down her leg" Pertinent physical exam findings: No erythema or edema to right LE. normal vital signs I have ordered the following: nothing The patient will proceed to the ED for further evaluation. Discharge Disposition - Diagnosis Leg pain - Referrals Referrals: Daphney Long MD [Primary Care Provider] - - Patient Instructions - Post Discharge Activity
[2018-09-27 17:52] VITALS: BP 120/78; PULSE 82; TEMP 98.2; BMI 47.2
--- NOTE | 2018-09-27 19:10 | PDOC ---
History of Present Illness - General Chief Complaint: Pain, Acute Stated Complaint: RIGHT LEG PAIN Time Seen by Provider: 09/27/18 17:45 - History of Present Illness Initial Comments: 09/27/18 19:08 48-year-old female with a past medical history significant for hypertension presents for evaluation of right leg radicular symptoms. No loss of bowel bladder function or saddle paresthesias Past History - Past Medical History Allergies/Adverse Reactions: Allergies Allergy/AdvReac Type Severity Reaction Status Date / Time No Known Drug Allergies Allergy Verified 09/27/18 17:45 Home Medications: Ambulatory Orders Hydrochlorothiazide [Hctz -] 25 mg PO DAILY 11/15/17 Losartan Potassium 50 mg PO ASDIR 11/15/17 Cyclobenzaprine HCl [Flexeril 10 mg] 10 mg PO HS PRN #10 tablet 09/27/18 Methylprednisolone [Medrol Dose Gama] 4 mg PO ASDIR #21 tablet 09/27/18 Anemia: No Asthma: Yes Cancer: No Cardiac Disorders: No CVA: No COPD: No CHF: No DVT: No Dementia: No Diabetes: No GI Disorders: No Disorders: No HTN: Yes Hypercholesterolemia: No Liver Disease: No Seizures: No Thyroid Disease: No - Surgical History Abdominal Surgery: No Appendectomy: No Cardiac Surgery: No Cholecystectomy: No Lung Surgery: No Neurologic Surgery: No Orthopedic Surgery: No - Immunization History Immunization Up to Date: Yes - Suicide/Smoking/Psychosocial Hx Smoking Status: No Smoking History: Never smoked Have you smoked in the past 12 months: No Number of Cigarettes Smoked Daily: 0 Information on smoking cessation initiated: No Hx Alcohol Use: No Drug/Substance Use Hx: No Substance Use Type: None Review of Systems - Review of Systems Neurological: Yes: See HPI, Tingling *Physical Exam - Vital Signs Last Vital Signs Temp Pulse Resp BP Pulse Ox 98.2 F 82 16 120/78 98 09/27/18 17:46 09/27/18 17:46 09/27/18 17:46 09/27/18 17:46 09/27/18 17:46 - Physical Exam Comments: 09/27/18 19:09 Lumbar spine skin color and temperature are normal range of motion is decreased is mild right left paralumbar musculature spasm and tenderness 5 out of 5 strength in bilateral lower extremities without gross sensorimotor deficits thighs and calves are soft and nontender. She's neurovascularly intact just positive straight leg raise test on the right negative on the left *DC/Admit/Observation/Transfer Diagnosis at time of Disposition: Leg pain, Lumbar radiculopathy - Discharge Dispostion Disposition: HOME Condition at time of disposition: Stable Decision to Admit order: No - Prescriptions Prescriptions: Cyclobenzaprine HCl [Flexeril 10 mg] 10 mg PO HS PRN #10 tablet PRN Reason: Muscle Spasms Methylprednisolone [Medrol Dose Gama] 4 mg PO ASDIR #21 tablet - Referrals Referrals: Daphney Long MD [Primary Care Provider] - Dejuan Messer MD [Staff Physician] - - Patient Instructions Additional Instructions: Return to the emergency room should symptoms worsen or go unresolved. Please follow-up with spine surgery in 2-3 days for further evaluation and treatment options. If he need anything more fever pain besides what was prescribed he may take Tylenol. - Post Discharge Activity
== END 2018-09-27 19:20 | disposition home or self-care (01) ==
LOC: JERFT 17:00
DX: M54.16 Radiculopathy, lumbar region (principal)
CPT/HCPCS: 99281-25

== ENCOUNTER 2018-11-16 06:02 | Emergency (ER) | payer SELFPAY ==
--- NOTE | 2018-11-16 06:28 | PDOC ---
History of Present Illness - General Stated Complaint: VOMITING Time Seen by Provider: 11/16/18 06:28 History Source: Patient Exam Limitations: No Limitations - History of Present Illness Initial Comments: Pt is a 48 yo F, with PMH of HTN, reflux, obesity, and asthma, who is presenting with complaints of nausea, vomiting, and epigastric pain x2 days. Pt came in today because she noticed small streaks of red in her vomit today after wretching. Pt states she has a known history of acid reflux, with negative EGD done ~[address] Wilde. She tried to take her omeprazole for the pain, with no relief. The pain is Pt denies any alleviating or exacerbating factors, and has not been able to tolerate any PO intake due to the nausea and vomiting. She notes she has also been constipated for the past ~5 days, which is unusual for her, but worsened when she stopped tolerating PO intake. Pt denies any fevers/chills, headache, vision changes, syncope, chest pain, palpitations, SOB , urinary symptoms, diarrhea, or leg swelling. Social: Pt denies any cigarette, alcohol, or drug use. Pt denies any recent travel or sick contacts. Surgical: no relevant history. Family: no relevant history. 11/19/18 14:35 Past History - Travel Traveled outside of the country in the last 30 days: No Close contact w/someone who was outside of country & ill: No - Past Medical History Allergies/Adverse Reactions: Allergies Allergy/AdvReac Type Severity Reaction Status Date / Time No Known Drug Allergies Allergy Verified 11/16/18 06:36 Home Medications: Ambulatory Orders Hydrochlorothiazide [Hctz -] 25 mg PO DAILY 11/15/17 Losartan Potassium 50 mg PO ASDIR 11/15/17 Cyclobenzaprine HCl [Flexeril 10 mg] 10 mg PO HS PRN #10 tablet 09/27/18 Ondansetron [Zofran Odt -] 4 mg SL PRN PRN #10 od.tablet 11/16/18 Anemia: No Asthma: Yes Cancer: No Cardiac Disorders: No CVA: No COPD: No CHF: No DVT: No Dementia: No Diabetes: No GI Disorders: No Disorders: No HTN: Yes Hypercholesterolemia: No Liver Disease: No Seizures: No Thyroid Disease: No - Surgical History Abdominal Surgery: No Appendectomy: No Cardiac Surgery: No Cholecystectomy: No Lung Surgery: No Neurologic Surgery: No Orthopedic Surgery: No - Immunization History Immunization Up to Date: Yes - Suicide/Smoking/Psychosocial Hx Smoking Status: No Smoking History: Never smoked Have you smoked in the past 12 months: No Number of Cigarettes Smoked Daily: 0 Hx Alcohol Use: Yes (SOCIAL) Drug/Substance Use Hx: No Substance Use Type: None Review of Systems - Review of Systems Able to Perform ROS?: Yes Is the patient limited Citizen [place] proficient: No Constitutional: Yes: Loss of Appetite, Weight Stable. No: Chills, Diaphoresis, Fever, Weakness HEENTM: No: Recent change in vision, Nose Congestion, Throat Pain, Throat Swelling, Difficulty Swallowing Respiratory: No: Cough, Shortness of Breath Cardiac (ROS): No: Chest Pain, Edema, Irregular Heart Rate, Lightheadedness, Palpitations, Syncope, Chest Tightness ABD/GI: Yes: See HPI, Constipated, Nausea, Poor Appetite, Poor Fluid Intake, Vomiting, Indigestion, Abdominal cramping. No: Abdominal Distended, Blood Streaked Bowels, Diarrhea, Difficulty Swallowing : No: Burning, Dysuria, Frequency, Pain, Urgency Musculoskeletal: No: Back Pain, Joint Pain Integumentary: No: Rash Neurological: No: Headache, Numbness, Weakness, Unsteady Gait, Dizziness Psychiatric: No: Change in Appetite (only since symptoms started x2 days) Endocrine: No: Increased Urine, Change in Weight Hematologic/Lymphatic: No: Anemia, Blood Clots, Easy Bleeding, Easy Bruising All Other Systems: Reviewed and Negative *Physical Exam - Physical Exam General Appearance: Yes: Nourished, Appropriately Dressed, Obese. No: Apparent Distress HEENT: positive: EOMI, DANNY, Normal ENT Inspection, Normal Voice, Pharynx Normal , Hearing Grossly Normal. negative: Scleral Icterus (R), Scleral Icterus (L), Pharyngeal Erythema, Tonsillar Exudate, Tonsillar Erythema, Nasal Congestion, Rhinorrhea Neck: positive: Trachea midline, Normal Thyroid, Supple. negative: Tender, Rigid, Lymphadenopathy (R), Lymphadenopathy (L) Respiratory/Chest: positive: Lungs Clear, Normal Breath Sounds. negative: Chest Tender, Respiratory Distress, Accessory Muscle Use, Crackles, Wheezing Cardiovascular: positive: Regular Rhythm, Regular Rate, S1, S2. negative: Edema , JVD, Murmur Vascular Pulses: Carotid (R): 4+, Carotid (L): 4+ Gastrointestinal/Abdominal: positive: Normal Bowel Sounds, Tender (epigastric), Soft, Protuberent. negative: Flat, Organomegaly, Pulsatile Mass, Distended, Guarding, Rebound, Hernia Rectal Exam: positive: deferred Lymphatic: negative: Adenopathy, Tenderness Musculoskeletal: positive: Normal Inspection. negative: CVA Tenderness Extremity: positive: Normal Capillary Refill, Normal Inspection, Normal Range of Motion, Pelvis Stable. negative: Tender, Pedal Edema Integumentary: positive: Normal Color, Dry, Warm. 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 Santos. Pt presenting with complaints of nausea, vomiting, and epigastric pain x2 days. Pt came in today because she noticed small streaks of red in her vomit today after wretching. Pt states she has a known history of acid reflux, with negative EGD done ~[address] Wilde. She tried to take her omeprazole for the pain, with no relief. The pain is Pt denies any alleviating or exacerbating factors, and has not been able to tolerate any PO intake due to the nausea and vomiting. She notes she has also been constipated for the past ~5 days, which is unusual for her, but worsened when she stopped tolerating PO intake. Pt denies any fevers/chills, headache, vision changes, syncope, chest pain, palpitations, SOB , urinary symptoms, diarrhea, or leg swelling. Pt vitals stable, afebrile, able to lie comfortably in the bed. PE showed abdominal tenderness to palpation in the epigastric area, no rebound, no guarding. Considering viral enteritis vs gastritis vs bacterial enteritis/toxin vs obstruction. Last BM ~5 days ago, but pt passing flatus and belching, has had decreased PO intake. Ordered work-up including CBC, CMP, lipase, troponin, ECG, UA. Provided 4 mg IV zofran, 30 mg PO maalox, viscous lidocaine, 20 mg IV pepcid, and 1 L IV NS for improvement of pain and nausea. Will continue to reassess pt and monitor for symptomatic improvement. Pt signed out to next resident team. Explained presentation, ED course, any pending results, and needed interventions to resident Dr. Acevedo. 11/16/18 06:46 11/19/18 14:29 *DC/Admit/Observation/Transfer Diagnosis at time of Disposition: Epigastric pain Vomiting Qualifiers: Vomiting type: unspecified Vomiting Intractability: non-intractable Nausea presence: with nausea Qualified Code(s): R11.2 - Nausea with vomiting, unspecified - Prescriptions Prescriptions: Ondansetron [Zofran Odt -] 4 mg SL PRN PRN #10 od.tablet PRN Reason: nausea - Referrals Referrals: Daphney Long MD [Primary Care Provider] - - Patient Instructions Printed Discharge Instructions: DI for Vomiting -- Adult Additional Instructions: You came into the ED for nausea, vomiting, and abdominal pain. Labs were normal. We gave you medicine which helped relieve your symptoms. Prescription sent to your pharmacy: Zofran , take under the tongue as needed for nausea/vomiting, may repeat after 8 hours Follow-up with your primary care doctor this week to discuss this ED visit and to further evaluate your symptoms. Immediate medical attention is required if you have: you develop worsening pain , high fevers, persistent nausea/vomiting even with anti-nausea medicine, or any new or concerning symptoms. If you think you are having an emergency, call for emergency medical services or present to the emergency department right away. - Post Discharge Activity
[2018-11-16] MEDS ORDERED: SODIUM CHLORIDE 1,000 ML IV STA (06:31)
[2018-11-16 06:37] VITALS: TEMP 98.4; BMI 46.0
[2018-11-16] MEDS ORDERED: FAMOTIDINE 20 MG/50 ML IVPB 20 MG/50 ML MG IVPB ONE ×2 (06:40→07:33)
[2018-11-16] MEDS ORDERED: ONDANSETRON 4 MG/2 ML VIAL IVPUSH ONE (06:40)
[2018-11-16] MEDS ORDERED: MAG HYDROX/AL HYDROX/SIMETH 30 ML UNIT-DOSE CUP PO ONE (06:40)
--- NOTE | 2018-11-16 06:59 | PDOC ---
Attending Attestation - Resident Resident Name: Oly Little - ED Attending Attestation I have performed the following: I have examined & evaluated the patient, The case was reviewed & discussed with the resident, I agree w/resident's findings & plan - HPI HPI: 11/16/18 06:58 48 YOF with h/o HTN, acid reflux and asthma presenting with n/v x 2 days, now a /w epigastric AP. denies food precipitants denies abdominal surgeries. no f/c, cp or sob. has had EGD in past, neg for ulcers. 11/16/18 07:10 11/16/18 07:11 - Physicial Exam PE: 11/16/18 06:58 NAD, well appearing, PERRL, EOMI, MMM, nl conjunctiva, anicteric; neck supple. lungs clear, RRR, abdomen soft +morbidly obese, epigastric TTP. LAZARO x4, no focal neuro deficits. No peripheral edema. normal color for ethnicity, WWP. - Medical Decision Making 11/16/18 07:11 hpi as documented. DDx. GERD, PUD, reflux, pancreatitis, hepatitis, ACS, arrhythmia, biliary colic , electrolyte/metabolic derangements basic labs and lytes, lipase/LFTs pending EKG, trop s/o pending labs and reeval. given GI cocktail, as pt has h/o reflux sx. neg EGD workup previously, so less likely ulcer. no cp or sob, defer xray imaging for now. 11/16/18 07:11
[2018-11-16] MEDS ORDERED: ONDANSETRON 4 MG/2 ML VIAL ONE (07:32)
[2018-11-16] MEDS: LIDOCAINE VISCOUS 2% ORAL/TOP 20 ML UNIT-DOSE CUP MM ONE ×2 (07:35→08:10)
[2018-11-16 07:42] LABS: BASO % 0.3 % (0-2.0); HEMATOCRIT 39.6 % (32.4-45.2); LYMPH % 17.5 % (8-40); MCH 31.2 pg (25.7-33.7); MCHC 35.5 g/dl (32.0-36.0); MEAN CELL VOLUME 87.9 fl (80-96); MEAN PLT VOLUME 10.7 fl (7.5-11.1); MONO % 6.4 % (3.8-10.2); NEUT % 74.8 % (42.8-82.8); PLATELET COUNT 277 K/MM3 (134-434); RDW 14.4 % (11.6-15.6); WHITE BLOOD COUNT 7.7 K/mm3 (4.0-10.0)
--- NOTE | 2018-11-16 07:46 | PDOC ---
*Physical Exam - Vital Signs Last Vital Signs Temp Pulse Resp BP Pulse Ox 98.4 F 90 18 142/90 100 11/16/18 06:10 11/16/18 06:10 11/16/18 06:10 11/16/18 06:10 11/16/18 06:10 ED Treatment Course - LABORATORY CBC & Chemistry Diagram: 11/16/18 07:24 11/16/18 07:24 - ADDITIONAL ORDERS Additional order review: 11/16/18 07:24 RBC 4.50 MCV 87.9 MCHC 35.5 RDW 14.4 MPV 10.7 Neutrophils % 74.8 D Lymphocytes % 17.5 D Monocytes % 6.4 Eosinophils % 1.0 Basophils % 0.3 - Medications Given in the ED: ED Medications Discontinued Medications Generic Name Dose Route Start Last Admin Trade Name Freq PRN Reason Stop Dose Admin Sodium Chloride 1,000 mls @ 1,000 mls/hr 11/16/18 06:31 11/16/18 07:40 Normal Saline - IV 11/16/18 07:30 1,000 mls/hr ASDIR STA Administration Famotidine/Sodium Chloride 20 mg in 50 mls @ 100 mls/hr 11/16/18 06:40 07:40 Pepcid 20 Mg Premixed Ivpb - IVPB 11/16/18 07:09 100 mls/hr ONCE ONE Administration Ondansetron HCl 4 mg 11/16/18 06:40 11/16/18 07:40 Zofran Injection IVPUSH 11/16/18 06:41 4 mg ONCE ONE Administration Medical Decision Making - Medical Decision Making Patient signed out from Dr. Little 48yo F with nausea, vomiting, epigastric pain x 2 days. Also, constipation x 5 days. Denies history of CAD or ACS, has seen a tester wafer substrate with stress test about a year and half ago after which she was prescribed a water pill. -Will reassess -Pending labs -EKG, rate 83, QTc 439, NSR with flattened t waves in anteroseptal distribution present in previous EKG 04/22/18 11/16/18 07:46 No anemia or leukocytosis or anemia Electrolytes unremarkable: Py=243, patient is receiving 1L NS UA negative for infection Patient still endorsing symptoms Will reassess 11/16/18 08:34 Patient reports feeling better. She endorses feeling "gassy" Po challenge started 11/16/18 10:57 Repeat ekg without significant changes. Repeat Tpn negative. Patient discharged *DC/Admit/Observation/Transfer Diagnosis at time of Disposition: Vomiting - Discharge Dispostion Disposition: HOME Condition at time of disposition: Improved - Prescriptions Prescriptions: Ondansetron [Zofran Odt -] 4 mg SL PRN PRN #10 od.tablet PRN Reason: nausea - Referrals Referrals: Daphney Long MD [Primary Care Provider] - - Patient Instructions Printed Discharge Instructions: DI for Vomiting -- Adult Additional Instructions: You came into the ED for nausea, vomiting, and abdominal pain. Labs were normal. We gave you medicine which helped relieve your symptoms. Prescription sent to your pharmacy: Zofran , take under the tongue as needed for nausea/vomiting, may repeat after 8 hours Follow-up with your primary care doctor this week to discuss this ED visit and to further evaluate your symptoms. Immediate medical attention is required if you have: you develop worsening pain , high fevers, persistent nausea/vomiting even with anti-nausea medicine, or any new or concerning symptoms. If you think you are having an emergency, call for emergency medical services or present to the emergency department right away. - Post Discharge Activity
[2018-11-16 07:54] LABS: URINE APPEARANCE CLEAR; URINE BILIRUBIN NEGATIVE (<2.0 mg/dL); URINE COLOR LTYELLOW; URINE GLUCOSE (UA) NEGATIVE (NEGATIVE); URINE KETONE NEGATIVE (NEGATIVE); URINE LEUK ESTERASE NEGATIVE (NEGATIVE); URINE NITRITE NEGATIVE (NEGATIVE); URINE PROTEIN NEGATIVE (NEGATIVE); URINE UROBILINOGEN NEGATIVE mg/dL (0.2-1.0)
[2018-11-16] MEDS ORDERED: MAG HYDROX/AL HYDROX/SIMETH 30 ML UNIT-DOSE CUP ONE (07:58)
[2018-11-16 08:14] LABS: ALBUMIN 3.5 g/dl (3.4-5.0); ALK PHOS 115 U/L (45-117); ANION GAP 10 MMOL/L (8-16); BILIRUBIN,TOTAL 0.6 mg/dL (0.2-1); BLOOD UREA NITROGEN 14 mg/dL (7-18); CALCIUM 8.8 mg/dL (8.5-10.1); CHLORIDE 99 mmol/L (98-107); CO2 25 mmol/L (21-32); CREATININE 0.6 mg/dL (0.55-1.3); GLUCOSE,RANDOM 95 mg/dL (74-106); LIPASE 84 U/L (73-393); POTASSIUM 3.7 mmol/L (3.5-5.1); SGOT/AST 30 U/L (15-37); SGPT/ALT 32 U/L (13-61); SODIUM 134 mmol/L (136-145); TOT PROT 7.6 g/dl (6.4-8.2)
[2018-11-16 11:01] VITALS: BP 122/75; PULSE 81
--- NOTE | 2018-11-16 12:00 | EKG ---
Test Reason : Blood Pressure : / mmHG Vent. Rate : 083 BPM Atrial Rate : 083 BPM P-R Int : 176 ms QRS Dur : 066 ms QT Int : 374 ms P-R-T Axes : 038 028 -15 degrees QTc Int : 439 ms NORMAL SINUS RHYTHM ANTEROSEPTAL INFARCT (CITED ON OR BEFORE 22-APR-2018) ABNORMAL ECG WHEN COMPARED WITH ECG OF 22-APR-2018 17:54, NO SIGNIFICANT CHANGE WAS FOUND Confirmed by NOREEN BALLESTEROS MD ([id number]) on 11/16/2018 11:59:36 AM Referred By: Confirmed By:NOREEN BALLESTEROS MD
--- NOTE | 2018-11-16 18:50 | EKG ---
Test Reason : Blood Pressure : / mmHG Vent. Rate : 079 BPM Atrial Rate : 079 BPM P-R Int : 166 ms QRS Dur : 074 ms QT Int : 392 ms P-R-T Axes : 041 020 -17 degrees QTc Int : 449 ms NORMAL SINUS RHYTHM POSSIBLE ANTERIOR INFARCT (CITED ON OR BEFORE 22-APR-2018) ABNORMAL ECG WHEN COMPARED WITH ECG OF 16-NOV-2018 07:26, NO SIGNIFICANT CHANGE WAS FOUND Confirmed by LESLI WU, NOREEN ([id number]) on 11/16/2018 6:50:09 PM Referred By: Confirmed By:NOREEN BALLESTEROS MD
== END 2018-11-16 13:00 ==
LOC: JER 06:02
PROC: 3E033GC Introduction of Other Therapeutic Substance into Peripheral Vein, Percutaneous Approach (ICD-10-PCS; principal; 2018-11-16)
PROC: 3E0337Z Introduction of Electrolytic and Water Balance Substance into Peripheral Vein, Percutaneous Approach (ICD-10-PCS; 2018-11-16)
DX: R11.10 Vomiting, unspecified (principal)
CPT/HCPCS: 36415; 80053; 81003; 83690; 84484; 85025; 87086; 93005; 93010; 99283-25; J7030

== ENCOUNTER 2019-06-27 18:28 | Emergency (ER) | payer OTHER | END 2019-06-27 20:07 | disposition home or self-care (01) | LOC: JERFT 18:28 ==

== ENCOUNTER 2019-09-13 21:59 | Emergency (ER) | payer OTHER ==
[2019-09-13] MEDS ORDERED: LIDOCAINE PATCH REMOVAL MC SCH (22:00)
[2019-09-13 22:11] VITALS: BP 116/57; PULSE 77; TEMP 98.1; BMI 46.0
--- NOTE | 2019-09-13 22:38 | PDOC ---
History of Present Illness - General Chief Complaint: Back Pain Stated Complaint: lower back pain Time Seen by Provider: 09/13/19 22:14 History Source: Patient Exam Limitations: No Limitations - History of Present Illness Initial Comments: 09/14/19 06:12 HPI: 49F PMH HTN, Asthma c/o 4 days of constant low back pain radiating down the left buttock. Pain started after pt heavy lifting. Has tried motrin w/o relief. Pain is similar to prior episodes of LBP. Denies numbness, tingling, saddle anesthesia, urinary or bowel incontinence. Denies f/c, n/v, abd pain, cp/sob, IVDA. No trauma or falls. States she can ambulate albeit slowly. No longer menstrating. Past History - Past Medical History Allergies/Adverse Reactions: Allergies Allergy/AdvReac Type Severity Reaction Status Date / Time No Known Drug Allergies Allergy Verified 09/13/19 22:11 Home Medications: Ambulatory Orders Hydrochlorothiazide [Hctz -] 25 mg PO DAILY 11/15/17 Losartan Potassium 50 mg PO ASDIR 11/15/17 Cyclobenzaprine HCl [Flexeril 10 mg] 10 mg PO HS PRN #10 tablet 09/27/18 Ondansetron [Zofran Odt -] 4 mg SL PRN PRN #10 od.tablet 11/16/18 Cyclobenzaprine HCl [Flexeril -] 10 mg PO HS #10 tablet 06/27/19 Diclofenac Sodium 75 mg PO BID #20 tablet. 06/27/19 Methocarbamol [Robaxin -] 500 mg PO TID PRN #15 tablet 09/14/19 Anemia: No Asthma: Yes Cancer: No Cardiac Disorders: No CVA: No COPD: No CHF: No DVT: No Dementia: No Diabetes: No GI Disorders: No Disorders: No HTN: Yes Hypercholesterolemia: No Liver Disease: No Seizures: No Thyroid Disease: No - Surgical History Abdominal Surgery: No Appendectomy: No Cardiac Surgery: No Cholecystectomy: No Lung Surgery: No Neurologic Surgery: No Orthopedic Surgery: No - Immunization History Immunization Up to Date: Yes - Psycho Social/Smoking Cessation Hx Smoking Status: No Smoking History: Never smoked Have you smoked in the past 12 months: No Number of Cigarettes Smoked Daily: 0 Information on smoking cessation initiated: No Hx Alcohol Use: No Drug/Substance Use Hx: No Substance Use Type: None Review of Systems - Review of Systems Able to Perform ROS?: Yes Comments:: 09/14/19 06:12 ROS: CONSTITUTIONAL: Denies F / C RESP: Denies SOB, cough, orthopnea, CORONEL CARD: Denies chest pain, palpitations GI: Denies N / V / D, abdominal pain, bloody stool, inability to tolerate PO : Denies dysuria, frequency, saddle anesthesia MSK: Endorses low back pain NEURO: Denies numbness, tingling, weakness Is the patient limited [place] proficient: No *Physical Exam - Vital Signs Last Vital Signs Temp Pulse Resp BP Pulse Ox 98.1 F 77 18 116/57 L 100 09/13/19 22:09 09/13/19 22:09 09/13/19 22:09 09/13/19 22:09 09/13/19 22:09 - Physical Exam Comments: 09/14/19 06:12 PE: GEN: AAOx3, nontoxic, moderate distress 2/2 pain. HEENT: NC/AT. No facial asymmetry. Normal voice. Supple neck w/ FROM. BACK: +TTP of the lumbar region. +SLR LLE. -SLR RLE. No step-offs or obvious deformities. CV: S1/S2, RRR, no m/r/g LUNG: CTAB, no wheezes, crackles, rales, rhonchi. GI: soft, ndnt, +BS, no guarding, no rebound. Neg CVAT b/l. EXTREMITIES: 2+ distal pulses. No LE edema. No obvious deformities of all extremities. SKIN: warm, dry, normal turgor PSYCH: normal mood and affect NEURO: Moving all extremities well, appropriate strength UE and LE b/l; LLE strength testing limited 2/2 pain. symmetric sensation. Medical Decision Making - Medical Decision Making 09/13/19 22:34 MDM: 49F c/o 4 days of LBP w/ radiation to left buttock. +TTP on lumbar spine. +SLR LLE. No IVDA. DDx likely sciatica; vertebral fx. Unlikely cord compression or cauda equina. - XR L-S - Toradol, robaxin, lidocaine patch - reassess 09/14/19 00:00 UA neg, Preg neg 09/14/19 01:31 DC home Discharge - Discharge Information Problems reviewed: Yes Clinical Impression/Diagnosis: Low back pain Qualifiers: Chronicity: unspecified Back pain laterality: left Sciatica presence: with sciatica Sciatica laterality: sciatica of left side Qualified Code(s): M54.42 - Lumbago with sciatica, left side Condition: Stable Disposition: HOME - Admission No - Additional Discharge Information Prescriptions: Methocarbamol [Robaxin -] 500 mg PO TID PRN #15 tablet PRN Reason: Muscle Spasms - Follow up/Referral Referrals: Daphney Long MD [Primary Care Provider] - Nam Zelaya MD, FAANS [Staff Physician] - - Patient Discharge Instructions Patient Printed Discharge Instructions: DI for Low Back Pain Additional Instructions: Please take all medications as prescribed. Please do not lift anything heavy. 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 If you pain continues please also follow up with the back specialists. Please return to the ED with any further concerns or complaints. - Post Discharge Activity Work/Back to School Note: Back to Work
[2019-09-13] MEDS ORDERED: KETOROLAC TROMETHAMINE 60 MG/2 ML VIAL IM ONE (22:44)
[2019-09-13] MEDS ORDERED: METHOCARBAMOL 500 MG TABLET PO ONE (22:44)
[2019-09-13] MEDS ORDERED: LIDOCAINE 5% TOPICAL PATCH TP ONE (22:44)
[2019-09-13] MEDS ORDERED: KETOROLAC TROMETHAMINE 60 MG/2 ML VIAL ONE (22:47)
[2019-09-13] MEDS ORDERED: METHOCARBAMOL 500 MG TABLET ONE (22:47)
[2019-09-13] MEDS ORDERED: LIDOCAINE 5% TOPICAL PATCH ONE (22:48)
[2019-09-13 23:35] LABS: URINE APPEARANCE CLEAR; URINE BILIRUBIN NEGATIVE (NEGATIVE); URINE COLOR YELLOW; URINE GLUCOSE (UA) NEGATIVE (NEGATIVE); URINE KETONE NEGATIVE (NEGATIVE); URINE LEUK ESTERASE NEGATIVE (NEGATIVE); URINE NITRITE NEGATIVE (NEGATIVE); URINE PROTEIN NEGATIVE (NEGATIVE)
--- NOTE | 2019-09-13 23:59 | PDOC ---
Documentation entered by Alanna Haddad SCRIBE, acting as scribe for Parisa Dupree DO. Parisa Dupree DO: This documentation has been prepared by the Boo cr Adrianna, SCRIBE, under my direction and personally reviewed by me in its entirety. I confirm that the documentation accurately reflects all work, treatment, procedures, and medical decision making performed by me. Attending Attestation - Resident Resident Name: Dejuan Roblero - ED Attending Attestation I have performed the following: I have examined & evaluated the patient, The case was reviewed & discussed with the resident, I agree w/resident's findings & plan, Exceptions are as noted - HPI HPI: The patient is a 49 year old female, with a significant PMH of HTN, reflux, obesity, and asthma, who presents to the ED for evaluation of low back pain for 4 days. Patient complains of diffuse low back pain that radiates to her left buttox after the patient picked up a heavy load of laundry. She denies any trauma to the back, and endorses some relief with Motrin. Allergies: NKA, NKDA Surgical History: None reported Social History: Denies EtOH, tobacco, or illicit drug use - Physicial Exam PE: Constitutional: +Obese. Awake, alert, oriented. No acute distress. Head: Normocephalic. Atraumatic Eyes: PERRL. EOMI. Conjunctivae are not pale. ENT: Mucous membranes are moist and intact. Posterior pharynx without exudates or erythema. Uvula midline. Neck: Supple. Full ROM. No lymphadenopathy. Cardiovascular: Regular rate. Regular rhythm. S1, S2 regular. Distal pulses are 2+ and symmetric. Pulmonary/Chest: No evidence of respiratory distress. Clear to auscultation bilaterally No wheezing, rales or rhonchi. Abdominal: +Obese. Soft and nondistended. There is no tenderness. No rebound , guarding or rigidity. No organomegaly. No palpable masses. Good bowel sounds. Back: +Midline lumbar spine tenderness to palpation. +Lumbar paraspinal tenderness to palpation. No CVA tenderness. Musculoskeletal: +Left buttox tenderness to palpation. No edema. No cyanosis. No clubbing. Full range of motion in all extremities. Radial/pedal pulses are intact and 2+ bilaterally Skin: Skin is warm and dry. No petechiae. No purpura. Neurological: +Ambulates with a steady gait, able to walk on tip toes. Alert and oriented to person, place, and time. Cranial nerves II-XII are grossly intact. Normal speech. Strength is grossly symmetric. No sensory deficits. No numbness or tingling of the bilateral lower extremities. Psychiatric: Good eye contact. Normal interaction, affect and behavior. - Medical Decision Making 09/13/19 23:50 I, Dr. Parisa Dupree, DO, attest that this document has been prepared under my direction and personally reviewed by me in its entirety. I further attest, that it accurately reflects all work, treatment, procedures and medical decision -making performed by me. 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 Pt sitting with her legs crossed on the bed in NAD has been ambulatory with a steady gait in the ED Discharge - Discharge Information Problems reviewed: Yes Clinical Impression/Diagnosis: Low back pain Condition: Stable Disposition: HOME - Admission No - Additional Discharge Information Prescriptions: Methocarbamol [Robaxin -] 500 mg PO TID PRN #15 tablet PRN Reason: Muscle Spasms - Follow up/Referral Referrals: Daphney Long MD [Primary Care Provider] - Nam Zelaya MD, FAANS [Staff Physician] - - Patient Discharge Instructions Patient Printed Discharge Instructions: DI for Low Back Pain Additional Instructions: Please take all medications as prescribed. Please do not lift anything heavy. 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 If you pain continues please also follow up with the back specialists. Please return to the ED with any further concerns or complaints. - Post Discharge Activity Work/Back to School Note: Back to Work
== END 2019-09-14 00:53 | disposition home or self-care (01) ==
LOC: JER 21:59
PROC: 3E0233Z Introduction of Anti-inflammatory into Muscle, Percutaneous Approach (ICD-10-PCS; principal; 2019-09-13)
DX: M54.42 Lumbago with sciatica, left side (principal); I10 Essential (primary) hypertension; J45.909 Unspecified asthma, uncomplicated
CPT/HCPCS: 72100-TC-FY; 81003; 84703; 99282-25

== ENCOUNTER 2019-10-23 16:34 | Emergency (ER) | payer OTHER ==
[2019-10-23 16:41] VITALS: BP 125/74; PULSE 80; TEMP 98.3; BMI 44.9
--- NOTE | 2019-10-23 16:41 | PDOC ---
Rapid Medical Evaluation Time Seen by Provider: 10/23/19 16:38 Medical Evaluation: Allergies Allergy/AdvReac Type Severity Reaction Status Date / Time No Known Drug Allergies Allergy Verified 09/13/19 22:11 10/23/19 16:38 Pt presents for evaluation of L lower back pain. She was supposed to go to the pain management doctor but there was a scheduling error. No saddle anesthesia or bladder/bowel incontinence Exam: TTP L lower back. Normal gait Orders: Nothing Pt to proceed to the ER for further evaluation Discharge Disposition - Diagnosis Low back pain - Referrals - Patient Instructions - Post Discharge Activity
[2019-10-23] MEDS ORDERED: KETOROLAC TROMETHAMINE 60 MG/2 ML VIAL IM ONE (18:45)
--- NOTE | 2019-10-23 18:47 | PDOC ---
History of Present Illness - General Chief Complaint: Back Pain Stated Complaint: BACK PAIN Time Seen by Provider: 10/23/19 16:38 - History of Present Illness Initial Comments: 10/23/19 18:45 49-year-old female with a past medical history of hypertension and dyslipidemia presents for evaluation of lower back pain without systemic or radicular symptoms. No loss of bowel or bladder function or saddle paresthesias Past History - Past Medical History Allergies/Adverse Reactions: Allergies Allergy/AdvReac Type Severity Reaction Status Date / Time No Known Drug Allergies Allergy Verified 09/13/19 22:11 Home Medications: Ambulatory Orders Hydrochlorothiazide [Hctz -] 25 mg PO DAILY 11/15/17 Losartan Potassium 50 mg PO ASDIR 11/15/17 Cyclobenzaprine HCl [Flexeril 10 mg] 10 mg PO HS PRN #10 tablet 09/27/18 Ondansetron [Zofran Odt -] 4 mg SL PRN PRN #10 od.tablet 11/16/18 Cyclobenzaprine HCl [Flexeril -] 10 mg PO HS #10 tablet 06/27/19 Diclofenac Sodium 75 mg PO BID #20 tablet.dr 06/27/19 Methocarbamol [Robaxin -] 500 mg PO TID PRN #15 tablet 09/14/19 Cyclobenzaprine HCl [Flexeril 10 mg] 10 mg PO HS PRN #10 tablet 10/23/19 Anemia: No Asthma: Yes Cancer: No Cardiac Disorders: No CVA: No COPD: No CHF: No DVT: No Dementia: No Diabetes: No GI Disorders: No Disorders: No HTN: Yes Hypercholesterolemia: No Liver Disease: No Seizures: No Thyroid Disease: No - Surgical History Abdominal Surgery: No Appendectomy: No Cardiac Surgery: No Cholecystectomy: No Lung Surgery: No Neurologic Surgery: No Orthopedic Surgery: No - Immunization History Immunization Up to Date: Yes - Psycho Social/Smoking Cessation Hx Smoking Status: No Smoking History: Never smoked Have you smoked in the past 12 months: No Number of Cigarettes Smoked Daily: 0 Information on smoking cessation initiated: No Hx Alcohol Use: No Drug/Substance Use Hx: No Substance Use Type: None Review of Systems - Review of Systems Musculoskeletal: Yes: Back Pain *Physical Exam - Vital Signs Last Vital Signs Temp Pulse Resp BP Pulse Ox 98.3 F 80 20 125/74 98 10/23/19 16:38 10/23/19 16:38 10/23/19 16:38 10/23/19 16:38 10/23/19 16:38 - Physical Exam 10/23/19 18:46 Lumbar spine skin color and temperature are normal. There is full nonpainful range of motion. 5 out of 5 strength in bilateral lower extremities. Straight leg raise test is negative bilaterally. Thighs and calves are soft and nontender. There are no gross sensory motor deficits. Neurovascularly intact. There is moderate bilateral paralumbar musculature spasm and tenderness. No midline tenderness. Medical Decision Making - Medical Decision Making 10/23/19 18:46 Toradol in the emergency room. Patient's on an ARB and omeprazole for GERD one- time dose of an anti-inflammatory to reset her pain cycle Flexeril at home with Tylenol follow-up with her primary care doctor and neurologist who is she is under the care of she was scheduled for an epidural injection today however the appointment was pushed forward until November Discharge - Discharge Information Problems reviewed: Yes Clinical Impression/Diagnosis: Low back pain Condition: Stable Disposition: HOME - Admission No - Additional Discharge Information Prescriptions: Cyclobenzaprine HCl [Flexeril 10 mg] 10 mg PO HS PRN #10 tablet PRN Reason: Muscle Spasms - Follow up/Referral Referrals: Daphney Long MD [Primary Care Provider] - - Patient Discharge Instructions Additional Instructions: Follow-up with your pain management doctor as directed. Return to the emergency room for worsening symptoms. Flexeril as prescribed. Avoid anti- inflammatories such as Advil Motrin Aleve and ibuprofen. You may supplement your Flexeril with Tylenol. Continue regular medications as scheduled. - Post Discharge Activity
[2019-10-23] MEDS ORDERED: KETOROLAC TROMETHAMINE 60 MG/2 ML VIAL ONE (18:55)
== END 2019-10-23 19:02 | disposition home or self-care (01) ==
LOC: JERFT 16:34
PROC: 3E0233Z Introduction of Anti-inflammatory into Muscle, Percutaneous Approach (ICD-10-PCS; principal; 2019-10-23)
DX: M54.5 Low back pain (principal); I10 Essential (primary) hypertension; E78.5 Hyperlipidemia, unspecified; Z87.09 Personal history of other diseases of the respiratory system
CPT/HCPCS: 99282-25

== ENCOUNTER 2020-07-05 11:11 | Emergency (ER) | payer OTHER ==
[2020-07-05 11:17] VITALS: BP 135/74; PULSE 74; TEMP 98.3; BMI 47.2
[2020-07-05] MEDS ORDERED: TETRACAINE 0.5% OPHTH SOLN 2 ML BOTTLE ONE (11:24)
[2020-07-05] MEDS ORDERED: FLUORESCEIN NA 1 EA STRIP ONE (11:24)
--- NOTE | 2020-07-05 11:46 | PDOC ---
History of Present Illness - General Chief Complaint: Eye Problem Stated Complaint: EYE PROBLEM Time Seen by Provider: 07/05/20 11:27 History Source: Patient Exam Limitations: Clinical Condition - History of Present Illness Initial Comments: 07/05/20 11:48 Patient with no significant past medical history present with complaint of bilateral eye itching and yellow discharge with swelling to right upper eyelid upon wake this morning. Patient report eye irritation started yesterday. Denies blurry vision or change in vision. Denies contact lens use. Denies eye trauma. Denies feeling of foreign body in eye. Patient has not taken anything for symptoms. Denies any other symptoms Is this a multiple visit Asthma Patient?: No Timing/Duration: 24 hours Past History - Medical History Allergies/Adverse Reactions: Allergies Allergy/AdvReac Type Severity Reaction Status Date / Time No Known Drug Allergies Allergy Verified 07/05/20 11:14 Home Medications: Ambulatory Orders Hydrochlorothiazide [Hctz -] 25 mg PO DAILY 11/15/17 Losartan Potassium 50 mg PO ASDIR 11/15/17 Cyclobenzaprine HCl [Flexeril 10 mg] 10 mg PO HS PRN #10 tablet 09/27/18 Ondansetron [Zofran Odt -] 4 mg SL PRN PRN #10 od.tablet 11/16/18 Cyclobenzaprine HCl [Flexeril -] 10 mg PO HS #10 tablet 06/27/19 Diclofenac Sodium 75 mg PO BID #20 tablet.dr 06/27/19 Methocarbamol [Robaxin -] 500 mg PO TID PRN #15 tablet 09/14/19 Cyclobenzaprine HCl [Flexeril 10 mg] 10 mg PO HS PRN #10 tablet 10/23/19 Erythromycin 0.5% Eye Ointment [Erythromycin 0.5% Eye Ointment -] 1 applic OD TID 5 Days #1 tube 07/05/20 Ofloxacin 0.3% Ophth Soln [Ocuflox -] 2 drop OD Q6H 5 Days #1 bottle 07/05/20 Anemia: No Asthma: Yes Cancer: No Cardiac Disorders: No CVA: No COPD: No CHF: No DVT: No Dementia: No Diabetes: No GI Disorders: No Disorders: No HTN: Yes Hypercholesterolemia: No Liver Disease: No Seizures: No Thyroid Disease: No - Surgical History Abdominal Surgery: No Appendectomy: No Cardiac Surgery: No Cholecystectomy: No Lung Surgery: No Neurologic Surgery: No Orthopedic Surgery: No - Reproductive History Is Patient Now?: No - Immunization History Immunization Up to Date: Yes - Psycho-Social/Smoking History Smoking Status: No Smoking History: Never smoked Have you smoked in the past 12 months: No Number of Cigarettes Smoked Daily: 0 - Substance Abuse Hx (Audit-C & DAST Scrn) How often the patient has a drink containing alcohol: Monthly or less How often the patient has six or more drinks on one occasion: Less than monthly Score: In Men: 4 or > Positive; In Women: 3 or > Positive: 2 Screen Result (Pos requires Nsg. Audit-10AR): Negative In the last yr the pt used illegal drug/Rx for NonMed reason: No Score: Yes response is considered Positive: 0 Screen Result (Positive result requires Nsg. DAST-10): Negative Review of Systems - Review of Systems Able to Perform ROS?: Yes Is the patient limited Slovenian proficient: No Constitutional: No: Chills, Fever, Malaise HEENTM: Yes: Symptoms Reported, See HPI, Eye Pain (right upper eyelid). No: Blurred Vision, Tearing, Recent change in vision, Double Vision, Cataracts, Ear Pain, Ocular Prothesis, Ear Discharge, Nose Pain, Nose Congestion, Tinnitus, Nose Bleeding, Hearing Loss, Throat Pain, Throat Swelling, Mouth Pain, Dental Problems, Difficulty Swallowing, Mouth Swelling, Other Respiratory: No: Symptoms reported, See HPI, Cough, Orthopnea, Shortness of Breath, SOB with Exertion, SOB at Rest, Stridor, Wheezing, Productive cough, Hemoptysis, Other Cardiac (ROS): No: Symptoms Reported, See HPI, Chest Pain, Edema, Irregular Heart Rate, Lightheadedness, Palpitations, Syncope, Chest Tightness, Other ABD/GI: No: Symptoms Reported, Nausea, Vomiting Integumentary: Yes: Symptoms Reported, See HPI, Lumps (right upper eyelid) All Other Systems: Reviewed and Negative *Physical Exam - Vital Signs Last Vital Signs Temp Pulse Resp BP Pulse Ox 98.3 F 74 18 135/74 99 07/05/20 11:14 07/05/20 11:14 07/05/20 11:14 07/05/20 11:14 07/05/20 11:14 - Physical Exam General Appearance: Yes: Nourished, Appropriately Dressed. No: Apparent Distress HEENT: positive: EOMI, DANNY, Normal ENT Inspection, Other (mild swelling to right upper eyelid with no skin erythema. No swelling to rest of eyelids. Pupil equal and reflective to light bilateral. Extraocular muscle intact bilateral. Mild 1 mm internal hordeolum to right upper eyelid which is likely the cause of patient eyelid swelling) Neck: positive: Supple Respiratory/Chest: positive: Lungs Clear, Normal Breath Sounds. negative: Respiratory Distress, Accessory Muscle Use Cardiovascular: positive: Regular Rhythm, Regular Rate Musculoskeletal: positive: Normal Inspection Extremity: positive: Normal Inspection, Normal Range of Motion Integumentary: positive: Normal Color, Other (mild swelling to right upper eyelid with no skin erythema. No swelling to rest of eyelids. Pupil equal and reflective to light bilateral. Extraocular muscle intact bilateral. Mild 1 mm internal hordeolum to right upper eyelid which is likely the cause of patient eyelid swelling) Neurologic: positive: Fully Oriented, Alert, Normal Mood/Affect, Normal Response, Motor Strength /5 Medical Decision Making - Medical Decision Making 07/05/20 11:49 Patient with no significant past medical history present with complaint of bilateral eye itching and yellow discharge with swelling to right upper eyelid upon wake this morning. Patient report eye irritation started yesterday. Denies blurry vision or change in vision. Denies contact lens use. Denies eye trauma. Denies feeling of foreign body in eye. Patient has not taken anything for symptoms. Denies any other symptoms Exam significant for mild swelling to right upper eyelid with no skin erythema. No swelling to rest of eyelids. Pupil equal and reflective to light bilateral. Extraocular muscle intact bilateral. Mild 1 mm internal hordeolum to right upper eyelid which is likely the cause of patient eyelid swelling. Patient in n o acute distress Patient stable for discharge on topical erythromycin and ofloxacin eyedrop with advised to do warm compresses with ophthalmology follow-up. Discharge - Discharge Information Problems reviewed: Yes Clinical Impression/Diagnosis: Eye irritation Stye Qualifiers: Laterality: right Eyelid: upper Qualified Code(s): H00.011 - Hordeolum externum right upper eyelid Condition: Stable Disposition: HOME - Admission No - Additional Discharge Information Prescriptions: Erythromycin 0.5% Eye Ointment [Erythromycin 0.5% Eye Ointment -] 1 applic OD TID 5 Days #1 tube Ofloxacin 0.3% Ophth Soln [Ocuflox -] 2 drop OD Q6H 5 Days #1 bottle - Follow up/Referral Referrals: Kraig Quinonez MD [Staff Physician] - Ethan Brown MD [Staff Physician] - - Patient Discharge Instructions Patient Printed Discharge Instructions: DI for Hordeolum Additional Instructions: Use prescribed antibiotics eye cream and drops as prescribed. Apply warm compresses to eyelid 2-3 times a day for 5 minutes as discussed. Follow-up referred ophthalmology if no improvement in 3 days - Post Discharge Activity
== END 2020-07-05 11:53 | disposition home or self-care (01) ==
LOC: JERFT 11:11
DX: H00.011 Hordeolum externum right upper eyelid (principal)
CPT/HCPCS: 99283-25

== ENCOUNTER 2020-12-07 22:19 | Emergency (ER) | payer OTHER ==
[2020-12-07 22:29] VITALS: BP 130/84; PULSE 106; TEMP 98.4; BMI 47.2
[2020-12-07] MEDS ORDERED: KETOROLAC TROMETHAMINE 60 MG/2 ML VIAL IM ONE (22:40)
[2020-12-07] MEDS ORDERED: morphine CARPU-JECT 4 MG/1 ML DISP.SYRIN IVPUSH ONE ×2 (22:42→23:33)
[2020-12-07] MEDS ORDERED: SODIUM CHLORIDE 500 ML IV STA (22:42)
[2020-12-07] MEDS ORDERED: ONDANSETRON 4 MG/2 ML VIAL ONE (22:43)
[2020-12-07] MEDS ORDERED: morphine SULFATE 4 MG/ML VIAL ONE ×2 (22:43→23:48)
[2020-12-07] MEDS ORDERED: ONDANSETRON 4 MG/2 ML VIAL IVPUSH ONE (22:44)
[2020-12-07 23:39] LABS: BASO % 1.2 % (0-2.0); EOS % 1.4 % (0-4.5); HEMATOCRIT 39.5 % (32.4-45.2); HEMOGLOBIN 12.7 GM/dL (10.7-15.3); LYMPH % 51.3 % (8-40); MCHC 32.2 g/dl (32.0-36.0); MEAN CELL VOLUME 93.2 fl (80-96); MEAN PLT VOLUME 10.6 fl (7.5-11.1); MONO % 9.6 % (3.8-10.2); NEUT % 36.5 % (42.8-82.8); PLATELET COUNT 282 K/MM3 (134-434); RBC 4.24 M/mm3 (3.60-5.2); RDW 15.5 % (11.6-15.6); WHITE BLOOD COUNT 9.8 K/mm3 (4.0-10.0)
[2020-12-07 23:52] LABS: CHLORIDE 104 mmol/L (98-107); SODIUM 128 mmol/L (136-145)
[2020-12-07 23:54] LABS: BLOOD UREA NITROGEN 17.5 mg/dL (7-18); CALCIUM 9.1 mg/dL (8.5-10.1); CO2 26 mmol/L (21-32); GLUCOSE,RANDOM 94 mg/dL (74-106)
[2020-12-07 23:57] LABS: CREATININE 0.9 mg/dL (0.55-1.3)
[2020-12-08 01:20] LABS: ANION GAP -2 MMOL/L (8-16)
[2020-12-08 01:37] LABS: POTASSIUM > 10.0 mmol/L (3.5-5.1)
== END 2020-12-08 00:48 | disposition home or self-care (01) ==
LOC: JER 22:19
PROC: 3E033NZ Introduction of Analgesics, Hypnotics, Sedatives into Peripheral Vein, Percutaneous Approach (ICD-10-PCS; principal; 2020-12-07)
PROC: 3E033NZ Introduction of Analgesics, Hypnotics, Sedatives into Peripheral Vein, Percutaneous Approach (ICD-10-PCS; 2020-12-07)
PROC: 3E033GC Introduction of Other Therapeutic Substance into Peripheral Vein, Percutaneous Approach (ICD-10-PCS; 2020-12-07)
PROC: 3E0337Z Introduction of Electrolytic and Water Balance Substance into Peripheral Vein, Percutaneous Approach (ICD-10-PCS; 2020-12-07)
DX: S52.532A Colles' fracture of left radius, initial encounter for closed fracture (principal)
CPT/HCPCS: 36415; 73070-TC-LT-FY; 73090-TC-LT-FY; 73110-TC-LT-FY; 80048; 85025; 85610; 85730; 99285-25

== ENCOUNTER 2020-12-19 10:12 | Day surgery (SDC) | payer OTHER ==
[2020-12-12 16:42] VITALS: BMI 47.2
[2020-12-19] MEDS ORDERED: BUPIVACAINE HCL/PF 0.5% (5 MG/ML) 30 ML VIAL IJ ONE (12:53)
[2020-12-19] MEDS ORDERED: MIDAZOLAM HCL 2 MG/2 ML SINGLE DOSE VIAL ONE ×2 (12:53→13:58)
[2020-12-19] MEDS ORDERED: PROMETHAZINE HCL 25 MG/1 ML VIAL IVPUSH PRN (13:40)
[2020-12-19] MEDS ORDERED: oxyCODONE HCL 5 MG TABLET PO PRN (13:40)
[2020-12-19] MEDS ORDERED: ONDANSETRON 4 MG/2 ML VIAL IVPUSH PRN (13:40)
[2020-12-19] MEDS ORDERED: LACTATED RINGERS SOLUTION 1,000 ML IV SCH (13:45)
[2020-12-19] MEDS ORDERED: PROPOFOL 20 ML ONE (14:03)
[2020-12-19] MEDS ORDERED: ONDANSETRON 4 MG/2 ML VIAL ONE (16:35)
[2020-12-19 17:18] VITALS: TEMP 97.8
[2020-12-19 17:29] VITALS: PULSE 69
[2020-12-19 18:33] VITALS: BP 121/68
== END 2020-12-19 18:20 | disposition home or self-care (01) ==
LOC: FASU 10:12
PROVIDERS: ATTEND Orthopaedic Surgery Sports Medicine
PROC: 0PSJ04Z Reposition Left Radius with Internal Fixation Device, Open Approach (ICD-10-PCS; principal; 2020-12-19 14:16)
DX: S52.572A Other intraarticular fracture of lower end of left radius, initial encounter for closed fracture (principal); X58.XXXA Exposure to other specified factors, initial encounter; Y93.9 Activity, unspecified; Y92.9 Unspecified place or not applicable; Y99.9 Unspecified external cause status
CPT/HCPCS: 25608; C1713; 73110-TC-LT-FY; 84703; 94760

== ENCOUNTER 2021-01-10 12:05 | Emergency (ER) | payer OTHER | END 2021-01-10 14:01 | disposition home or self-care (01) | LOC: JVIRT 12:05 | DX: U07.1 COVID-19 (principal) | CPT/HCPCS: C9803; G2251-GT; Q3014-GT; U0003 ==

== ENCOUNTER 2021-01-13 11:18 | Emergency (ER) | payer OTHER ==
[2021-01-13 11:28] VITALS: BMI 25.8
[2021-01-13] MEDS ORDERED: BAMLANIVIMAB 700 MG in SODIUM CHLORIDE 250 ML IVPB ONE (12:36)
[2021-01-13 13:42] LABS: HEMATOCRIT 40.2 % (32.4-45.2); HEMOGLOBIN 13.8 GM/dL (10.7-15.3); MCH 29.8 pg (25.7-33.7); MCHC 34.4 g/dl (32.0-36.0); MEAN CELL VOLUME 86.6 fl (80-96); MEAN PLT VOLUME 10.3 fl (7.5-11.1); PLATELET COUNT 257 K/MM3 (134-434); RBC 4.64 M/mm3 (3.60-5.2); RDW 14.4 % (11.6-15.6); WHITE BLOOD COUNT 6.5 K/mm3 (4.0-10.0)
[2021-01-13 14:15] LABS: POTASSIUM 3.5 mmol/L (3.5-5.1)
[2021-01-13 14:16] LABS: CALCIUM 9.3 mg/dL (8.5-10.1)
[2021-01-13 14:20] LABS: CREATININE 0.8 mg/dL (0.55-1.3)
[2021-01-13 16:30] VITALS: BP 127/78; PULSE 86; TEMP 98.2
== END 2021-01-13 16:30 | disposition home or self-care (01) ==
LOC: JCOVINFU 11:18
DX: U07.1 COVID-19 (principal)
CPT/HCPCS: 36415; 80048; 85027; 99284-25; M0239; Q0239

== ENCOUNTER 2021-01-26 09:32 | Emergency (ER) | payer OTHER | END 2021-01-26 10:22 | disposition home or self-care (01) | LOC: JVIRT 09:32 | DX: Z11.52 Encounter for screening for COVID-19 (principal) | CPT/HCPCS: G2251-GT; Q3014-GT ==

== ENCOUNTER 2023-06-23 22:55 | Emergency (ER) | payer OTHER ==
[~2023-06-23 22:55] MED LIST: LIDOCAINE PATCH REMOVAL MC SCH
[2023-06-23 22:59] VITALS: BP 128/81; PULSE 77; RESP 20; TEMP 98.3; BMI 46.3
[2023-06-23] MEDS ORDERED: LIDOCAINE 5% TOPICAL PATCH TP ONE (23:13)
[2023-06-23] MEDS ORDERED: CYCLOBENZAPRINE HCL 10 MG TABLET (FP) PO ONE (23:13)
[2023-06-23] MEDS ORDERED: KETOROLAC TROMETHAMINE 30 MG/1 ML VIAL IM ONE (23:13)
[2023-06-23] MEDS ORDERED: ACETAMINOPHEN 500 MG TABLET (FP) PO ONE (23:13)
[2023-06-23] MEDS ORDERED: LIDOCAINE 5% TOPICAL PATCH ONE (23:14)
[2023-06-23] MEDS ORDERED: ACETAMINOPHEN 500 MG TABLET (FP) ONE (23:14)
[2023-06-23] MEDS ORDERED: KETOROLAC TROMETHAMINE 15 MG/ML VIAL ONE (23:14)
[2023-06-23] MEDS ORDERED: CYCLOBENZAPRINE HCL 10 MG TABLET (FP) ONE (23:15)
== END 2023-06-23 23:31 | disposition home or self-care (01) ==
LOC: JERFT 22:55
PROC: 3E0233Z Introduction of Anti-inflammatory into Muscle, Percutaneous Approach (ICD-10-PCS; principal; 2023-06-23)
DX: M54.42 Lumbago with sciatica, left side (principal); M79.10 Myalgia, unspecified site
CPT/HCPCS: 99284-25

== ENCOUNTER 2024-07-03 19:57 | Emergency (ER) | payer OTHER ==
[2024-07-03 20:03] VITALS: BP 154/81; PULSE 74; RESP 20; TEMP 97.9; BMI 45.3
[2024-07-03] MEDS ORDERED: ACETAMINOPHEN 325 MG TABLET (FP) ONE (21:28)
[2024-07-03] MEDS: ACETAMINOPHEN 500 MG TABLET (FP) PO ONE (21:32)
== END 2024-07-03 22:08 | disposition home or self-care (01) ==
LOC: JER 19:57
DX: M79.661 Pain in right lower leg (principal)
CPT/HCPCS: 93971-TC; 99284-25